=== PATIENT | female | born 1990 | race Caucasian/White ===

== ENCOUNTER 2020-03-02 10:54 | Outpatient (REF) | payer OTHER, SELFPAY ==
[2020-03-02 11:25] LABS: COVID-19 Test Negative (Negative)
== END 2020-03-02 10:55 | disposition home or self-care (01) ==
LOC: HO.LAB 10:54
PROVIDERS: Visit Provider Internal Medicine
DX: Z20.828 Contact with and (suspected) exposure to other viral communicable diseases (principal)
CPT/HCPCS: 87635

== ENCOUNTER 2020-03-07 07:25 | Outpatient (REF) | payer OTHER, SELFPAY ==
[2020-03-07 07:47] LABS: COVID-19 Test Negative (Negative)
== END 2020-03-07 07:26 | disposition home or self-care (01) ==
LOC: HO.LAB 07:25
PROVIDERS: Visit Provider Internal Medicine
DX: Z20.828 Contact with and (suspected) exposure to other viral communicable diseases (principal)
CPT/HCPCS: 87635

== ENCOUNTER 2020-05-01 10:12 | Outpatient (REF) | payer OTHER, SELFPAY ==
[2020-05-01 10:30] LABS: COVID-19 Test Negative (Negative)
== END 2020-05-01 10:13 | disposition home or self-care (01) ==
LOC: HO.EMPCOV 10:12
PROVIDERS: Visit Provider Internal Medicine
DX: Z20.828 Contact with and (suspected) exposure to other viral communicable diseases (principal)
CPT/HCPCS: 87635; C9803

== ENCOUNTER 2020-05-01 13:46 | Outpatient (REF) | payer OTHER, SELFPAY ==
[2020-05-01 15:44] LABS: Syphilis Screen Nonreactive (Nonreactive)
[2020-05-02 04:20] LABS: ~Hepatitis C Antibody Nonreactive (Nonreactive)
[2020-05-02 04:24] LABS: HBsAGNum1 0.23 S/CO (0.00-0.99); HIV AB/AG Nonreactive (Nonreactive); HIV Num 1 0.05 S/CO (0.00-0.99); Hepatitis B Surface Antigen Negative (Negative)
[2020-05-02 08:57] LABS: Follicle Stimulating Hormone 8.1 mIU/mL; Lutenizing Hormone 2.7 mIU/mL; Prolactin 4.9 ng/mL
[2020-05-04 20:17] LABS: Anti-Mullerian Hormone-Female 3.14 ng/mL (0.36-10.07)
[2020-05-10 23:37] LABS: Estradiol Free 0.45 pg/mL; Estradiol, Ultrasensitive 30 pg/mL
== END 2020-05-01 13:47 | disposition home or self-care (01) ==
LOC: HO.LAB 13:46
PROVIDERS: PCP Family Medicine; Visit Provider Obstetrics & Gynecology Reproductive Endocrinology
DX: Z31.49 Encounter for other procreative investigation and testing (principal); Z31.9 Encounter for procreative management, unspecified; Z31.41 Encounter for fertility testing
CPT/HCPCS: 82397; 82670; 83001; 83002; 84146; 84443; 86762; 86780; 86803; 86850; 87340; 87389

== ENCOUNTER 2020-05-04 13:43 | Outpatient (REF) | payer OTHER, SELFPAY ==
[2020-05-04 14:05] LABS: COVID-19 Test Negative (Negative); IDNOW Serial# 55D5AD1C
== END 2020-05-04 13:44 | disposition home or self-care (01) ==
LOC: HO.EMPCOV 13:43
PROVIDERS: Visit Provider Internal Medicine
DX: Z20.828 Contact with and (suspected) exposure to other viral communicable diseases (principal)
CPT/HCPCS: 87635; C9803

== ENCOUNTER 2020-05-11 12:30 | Outpatient (RCR) | payer OTHER, SELFPAY ==
[2020-05-04 14:21] VITALS: BP 108/69; PULSE 88
--- NOTE | 2020-05-04 15:41 | MHC.PT.EP ---
[facility] [place] [facility] [place] [facility] [place] [facility] [address] Nitesh Almendarez [address] [phone] F: [phone] F: [phone] F: [phone] F: [phone] Physical Therapy Plan of Care Date of Evaluation: 05/04/20 Date of Surgery: NA Diagnosis: Dizziness and giddiness Assessment: 30 year old female referred for dizziness and giddiness . Pt reports of having sudden onset of vertigo about 3-4 months back which has gotten worse over the last 2 weeks. She describes her symptoms as room spinning which is present with rolling in bed, supine to sit, bending down and making sudden side to side head turns. Her symptoms last for a few seconds and she occasionally has nausea. Examination reveals saccades, smooth pursuit, visual tracking WNL, DGI- 23/24- dizziness with stop and turn, static balance- WNL and positive for L PC BPPV. She lives with her who helps her with all ADLS requiring her to bend down. 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 She is a good candidate for PT based on age, goals, physical impairments and functional limitations. She would benefit from PT for vestibular rehab. Frequency and Duration: The patient will be seen 2/week for 4 weeks Short Term Goals: 1. Patient to be educated on symptoms and indications to return to therapy when needed in 4 weeks. 2. Pt will be negative for nystagmus or reports of vertigo in all diagnostic positions bilaterally to resolution of BPPV in 4 weeks. Retirement Goals: 1. Patient to be able to functionally move in all planes and directions without provocation of dizziness to show return to PLOF in 6 weeks. Treatment Plan: Modalities to reduce pain, spasms and effusion. Manual therapy to restore motion and function. Therapeutic exercise to improve strength and flexibility. Neuromuscular re-education for posture and balance. Therapeutic activities to return to functional activities of daily living. Electronically signed by: Jesica Gary DPT Please sign and return to therapist. Thank you for your referral.
--- NOTE | 2020-06-14 08:26 | MHC.PT.DC ---
[facility] [place] [facility] [place] [facility] [place] [facility] [address] Nitesh Almendarez [address] [phone] F: [phone] F: [phone] F: [phone] F: [phone] Physical Therapy Discharge Report Diagnosis: Dizziness and giddiness Date of Surgery: NA Date of Evaluation: 05/04/20 Date of Discharge: 06/14/20 Treatments to Date: 4 Cancellations to Date: 0 No Shows to Date: Discharge Status: Achieved Goals Improved Function Discharge Summary: Pt arrived with no symptoms of vertigo on 05/11/20. She was assessed in B [place] and B roll test. She was negative for nystagmus and vertigo. Pt has been asymptomatic for a month. Pt therefore d/c from therapy today. Electronically signed by: Jesica Gary DPT Please sign and return to therapist. Thank you for your referral.
== END 2020-06-14 08:27 | disposition other institution (70) ==
LOC: HO.PT 12:30
PROVIDERS: PCP Family Medicine; Visit Provider Family Medicine
DX: R42 Dizziness and giddiness (principal)
CPT/HCPCS: 95992; 97112; 97161

== ENCOUNTER 2021-05-09 11:45 | Outpatient (REF) | payer OTHER, SELFPAY ==
[2021-05-09 12:56] LABS: Influenza A PCR NEGATIVE (Negative); Influenza B PCR NEGATIVE (Negative); Resp Syncy Virus RNA Qual PCR NEGATIVE (Negative); SARS COV2 PCR INHOUSE POSITIVE (Negative)
== END 2021-05-09 11:46 | disposition home or self-care (01) ==
LOC: HO.LNP 11:45
PROVIDERS: Visit Provider Family Medicine
DX: Z20.822 Contact with and (suspected) exposure to COVID-19 (principal); B34.9 Viral infection, unspecified
CPT/HCPCS: 0241U

== ENCOUNTER 2021-05-23 10:15 | Outpatient (REF) | payer OTHER, SELFPAY ==
--- NOTE | ~2021-05-23 | XR_ITS ---
EXAMINATION: XR CHEST CLINICAL INFORMATION: Post Covid 19 condition COMPARISON: Chest 12/05/2011 TECHNIQUE: 2 views of the chest were obtained. FINDINGS: No significant abnormality is noted involving the heart, lungs, mediastinum, bony thorax or soft tissues. XR/XR chest 2V IMPRESSION: Unremarkable chest examination.
== END 2021-05-23 10:16 | disposition home or self-care (01) ==
LOC: HO.XRAY 10:15
PROVIDERS: PCP Family Medicine; Visit Provider Internal Medicine Pulmonary Disease
DX: U09.9 Post COVID-19 condition, unspecified (principal); B34.9 Viral infection, unspecified; J45.909 Unspecified asthma, uncomplicated; Z79.51 Long term (current) use of inhaled steroids
CPT/HCPCS: 71046

== ENCOUNTER 2021-06-08 16:31 | Outpatient (REF) | payer OTHER, SELFPAY ==
[2021-06-08 16:41] LABS: MANUAL DIFF FLAG NO
[2021-06-08 17:39] LABS: Basophils Absolute Auto 0.1 X10*3/uL (0.0-0.2); Basophils Percent Auto 0.8 % (0-2); Eosinophils Absolute Auto 0.1 X10*3/uL (0.0-0.4); Eosinophils Percent Auto 1.6 % (0-4); Hematocrit 40.4 % (37.0-47.0); Hemoglobin 13.3 g/dl (12.0-16.0); Imm Gran Abs Auto 0.01 X10*3/uL (0.00-0.03); Imm Gran Pct Auto 0.2 % (0.0-0.4); Lymphocytes Absolute Auto 2.6 X10*3/uL (1.2-4.9); Lymphocytes Percent Auto 40.8 % (20-40); Mean Corpuscular HGB Conc 32.9 g/dl (31.0-35.0); Mean Corpuscular Hemoglobin 27.1 pg (27.0-33.0); Mean Corpuscular Volume 82.3 fL (80.0-98.0); Mean Platelet Volume 10.3 fL (9.4-12.3); Monocytes Absolute Auto 0.5 X10*3/uL (0.1-1.2); Monocytes Percent Auto 8.5 % (2-11); Neutrophils Absolute Auto 3.1 x10*3/uL (2.0-8.3); Neutrophils Percent Auto 48.1 % (45-73); Platelet Count 228 X10*3/uL (160-400); Red Blood Count 4.91 X10*6/uL (4.20-5.50); Red Cell Distribution Width 13.2 % (11.0-16.0); White Blood Count 6.4 X10*3/uL (4.8-10.8)
[2021-06-08 18:08] LABS: D Dimer High Sensitivity < 150 NG/ML
[2021-06-08 18:10] LABS: Troponin-I High Sensitivity < 3.5 ng/L (<3.5-17.0)
[2021-06-09 15:06] LABS: CRP High Sensitivity 0.4 mg/L
== END 2021-06-08 16:32 | disposition home or self-care (01) ==
LOC: HO.LAB 16:31
PROVIDERS: PCP Family Medicine; Visit Provider Internal Medicine Cardiovascular Disease
DX: R07.9 Chest pain, unspecified (principal)
CPT/HCPCS: 36415; 84484; 85025; 85379; 86141

== ENCOUNTER → 2021-06-12 14:47 | Outpatient (BNVA) | payer OTHER, SELFPAY | PROVIDERS: Visit Provider Internal Medicine Cardiovascular Disease | DX: Z13.89 Encounter for screening for other disorder (principal) | CPT/HCPCS: 93005 ==

== ENCOUNTER → 2021-06-13 14:23 | Outpatient (BNVA) | payer OTHER, SELFPAY | PROVIDERS: Visit Provider Internal Medicine Cardiovascular Disease | DX: R07.9 Chest pain, unspecified (principal) | CPT/HCPCS: 93005 ==

== ENCOUNTER → 2021-06-21 15:09 | Outpatient (BNVA) | payer OTHER, SELFPAY | PROVIDERS: PCP Family Medicine; Visit Provider Internal Medicine Pulmonary Disease | DX: B34.9 Viral infection, unspecified (principal); U09.9 Post COVID-19 condition, unspecified ==

== ENCOUNTER 2021-07-16 16:02 | Outpatient (REF) | payer OTHER, SELFPAY ==
--- NOTE | 2021-07-16 17:16 | PFT_ITS ---
FLOWS: FEV1 101% of predicted at 3.81 L. FVC 92% of predicted at 4.18 L. FEV1 to FVC ratio of 0.91. No bronchodilator response except in small to medium airways. LUNG VOLUMES: Total lung capacity 106% of predicted at 6.32 L. Residual volume 133% of predicted at 2.32 L. Slow vital capacity 94% of predicted at 4.01 L. Expiratory reserve volume 72% of predicted at 1.16 L. Diffusion capacity is normal. IMPRESSION: No obstructive or restrictive ventilatory defect. No bronchodilator response except in small to medium airways. Increased residual volume suggests air trapping. Nawaf Bryan MD AP/MODL / [id number]
== END 2021-07-16 16:03 | disposition home or self-care (01) ==
LOC: HO.RESP 16:02
PROVIDERS: PCP Family Medicine; Visit Provider Internal Medicine Pulmonary Disease
DX: R06.00 Dyspnea, unspecified (principal); J45.909 Unspecified asthma, uncomplicated
CPT/HCPCS: 94060; 94727; 94729

== ENCOUNTER 2021-08-13 15:48 | Outpatient (REF) | payer OTHER, SELFPAY ==
[2021-08-13 16:07] LABS: Strep A Nucleic Acid Negative (Negative)
== END 2021-08-13 15:49 | disposition home or self-care (01) ==
LOC: HO.LNP 15:48
PROVIDERS: Visit Provider Nurse Practitioner Family
DX: J02.9 Acute pharyngitis, unspecified (principal); Z20.822 Contact with and (suspected) exposure to COVID-19
CPT/HCPCS: 87071; 87147; 87651

== ENCOUNTER 2021-10-24 14:21 | Outpatient (REF) | payer OTHER, SELFPAY ==
[2021-10-24 15:06] LABS: Hematocrit 36.2 % (37.0-47.0); Hemoglobin 11.7 g/dl (12.0-16.0); Mean Corpuscular HGB Conc 32.3 g/dl (31.0-35.0); Mean Corpuscular Hemoglobin 26.1 pg (27.0-33.0); Mean Corpuscular Volume 80.6 fL (80.0-98.0); Mean Platelet Volume 9.6 fL (9.4-12.3); Platelet Count 249 X10*3/uL (160-400); Red Blood Count 4.49 X10*6/uL (4.20-5.50); Red Cell Distribution Width 13.1 % (11.0-16.0); White Blood Count 6.8 X10*3/uL (4.8-10.8)
[2021-10-24 15:35] LABS: Anion Gap 12 (12-20); Blood Urea Nitrogen 7 mg/dL (9-16); Calcium 8.9 mg/dL (8.4-10.2); Carbon Dioxide 24 mmol/L (22-29); Chloride 105 mmol/L (96-108); Estimated Glomerular Filt Rate > 60; Glucose Random 68 mg/dL (60-115); Iron 47 mcg/dL (30-160); Magnesium 1.9 mg/dL (1.6-2.6); Percent Iron Saturation 10 % (15-50); Potassium 3.8 mmol/L (3.3-5.1); Sodium 137 mmol/L (135-145); Total Iron Binding Capacity 465 mcg/dL (228-428); Unsaturated Iron Binding 418 ug/dL
[2021-10-24 15:56] LABS: TSH reflex Free T4 0.86 uIU/mL (0.32-4.0); Vitamin D 25-OH Total 21.5 ng/mL (>30)
[2021-10-24 16:04] LABS: Folate 9.3 ng/mL (> or = 4.0); Vitamin B12 272 pg/mL (200-900)
[2021-10-25 15:51] LABS: Calcium (PTHI) 8.9 mg/dL (8.6-10.2); PTHI 21 pg/mL (16-77)
== END 2021-10-24 14:22 | disposition home or self-care (01) ==
LOC: HO.LAB 14:21
PROVIDERS: PCP Nurse Practitioner Family; Visit Provider Physician Assistant
DX: R00.0 Tachycardia, unspecified (principal); D50.9 Iron deficiency anemia, unspecified; R42 Dizziness and giddiness; E53.8 Deficiency of other specified B group vitamins
CPT/HCPCS: 36415; 80048; 82306; 82607; 82746; 83540; 83735; 83970; 84443; 85027

== ENCOUNTER → 2021-11-05 11:19 | Outpatient (REF) | payer OTHER, SELFPAY ==
--- NOTE | 2021-11-05 11:23 | HM_ITS ---
Conclusion: 1. Patient was monitored for total period of 3 days 2. Baseline was normal sinus rhythm with average heart rate of 76 beats per minute 3. No significant pauses or bradycardia noted 4. One episode of 3 beat nonsustained VT at 169 beats per minute noted 5. Very rare ectopy noted 6. One reported patient event correlated with sinus rhythm MTDD
== END ==
LOC: HO.CARD 11:19
PROVIDERS: Visit Provider Physician Assistant
DX: R00.0 Tachycardia, unspecified (principal)
CPT/HCPCS: 93242

== ENCOUNTER → 2022-03-07 11:58 | Outpatient (RCR) | payer OTHER, SELFPAY ==
[2020-03-30 17:06] LABS: COVID-19 Test Negative (Negative)
[2020-04-07 18:18] LABS: COVID-19 Test Negative (Negative); IDNOW Serial# 55D5AD1C
[2020-04-17 13:41] LABS: COVID-19 Test Negative (Negative)
[2020-05-15 09:41] LABS: SARS-COV-2 PCR UMBRL Not Detected
[2020-05-23 09:51] LABS: SARS-COV-2 PCR UMBRL Not Detected
[2020-05-31 09:49] LABS: SARS-COV-2 PCR UMBRL NOT DETECTED
[2020-06-04 09:59] LABS: SARS-COV-2 PCR UMBRL NEGATIVE
== END | disposition home or self-care (01) ==
LOC: HO.EMPCOV 03-30 15:46
PROVIDERS: Visit Provider Internal Medicine
DX: Z20.828 Contact with and (suspected) exposure to other viral communicable diseases (principal)
CPT/HCPCS: 36415; 87635; C9803; U0003

== ENCOUNTER 2023-03-11 08:35 | Outpatient (AMB) | payer OTHER, SELFPAY ==
--- NOTE | 2023-03-11 08:38 | AM.OFFWIN_ITS ---
Intake Vital Signs 03/11/23 08:40 Height 5 ft 9 in Weight 136 lb 8 oz BMI 20.2 BP 104/60 Blood Pressure Location Lt brachial Position Sitting Pulse 85 Pulse Source Pulse Oximeter Temp 97.6 F Temp Source Temporal Artery Scan Pulse Oximetry (%) 98 Oxygen Delivery Method Room Air Intake Visit Reasons: EP, cough, body aches, congestion [phone] Intake Note: Pt is here c/o cough, body aches and chest congestion. Pt also has symptoms of bilateral ear pain. Patient Tobacco Use Status: Never used Tobacco Allergies No Known Allergies [No Known Allergies*] Allergy (Verified 03/11/23 08:59) Medication List - Last Reconciled 03/11/23 by Daniel Wilson MD No Known Home Meds Do you need a note to return to daycare/school/sports/work: Yes HPI EP, cough, body aches, congestion [phone] HPI Details Patient presents for a sick visit. Reporting symptoms of sinus congestion, sore throat and difficulty swallowing. Low-grade fever. family member are sick. No recent travel. Patient reports symptoms of malaise and fatigue. 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 Cognitive needs: No Hearing needs: No Vision needs: No Physical Exam Vital Signs: Last Vital Signs Temp 97.6 F 03/11/23 08:40 Pulse 85 03/11/23 08:40 BP 104/60 03/11/23 08:40 Pulse Ox 98 03/11/23 08:40 Oxygen Delivery Method Room Air 03/11/23 08:40 BMI result Body Mass Index 20.2 Const General: cooperative and healthy appearing Nutritional Appearance: well nourished Orientation/consciousness: patient oriented x3 Limitations: no limitations HEENT Head: Yes normal to inspection Eyes General: appearance normal, both eyes and all related structures Neck Neck: Yes normal visual inspection Chest Chest palpation & inspection: normal palpation of entire chest wall Resp Effort & Inspection: normal respiratory effort Neuro General: patient oriented x3 Assessment & Plan Assessment & Plan (1) Upper respiratory tract infection: Code(s): J06.9 - Acute upper respiratory infection, unspecified Plan: Antibiotics ordered. Increase fluid intake. Tylenol for aches and pains. If s ymptoms worsen, follow-up here for a recheck. Coding Level of Care Code Est Pt Level 3 (09676) Diagnoses Upper respiratory tract infection J06.9
[2023-03-11 08:40] VITALS: BP 104/60; PULSE 85; TEMP 36.4; O2SAT 98; BMI 20.2
== END 2023-03-11 09:03 | disposition home or self-care (01) ==
PROVIDERS: PCP Physician Assistant; Visit Provider Internal Medicine
DX: J06.9 Acute upper respiratory infection, unspecified (principal)
CPT/HCPCS: 99213

== ENCOUNTER 2023-04-15 08:07 | Outpatient (AMB) | payer OTHER, SELFPAY ==
[2023-04-15 08:14] VITALS: BP 102/78; PULSE 66; O2SAT 99; BMI 20.1
--- NOTE | 2023-04-15 08:14 | A.OFFPC_ITS ---
Vital Signs 04/15/23 08:14 Height 5 ft 9 in Weight 136 lb BMI 20.1 BP 102/78 Blood Pressure Location Lt brachial Position Sitting Pulse 66 Pulse Source Pulse Oximeter Pulse Oximetry (%) 99 Oxygen Delivery Method Room Air Intake Visit Reasons: PHY Intake Note: Patient here for a physical exam Campaign Management Specialist Required: No Accompanied by: Self / Same As Patient Allergies No Known Allergies [No Known Allergies*] Allergy (Verified 04/15/23 08:20) Medication List - Last Reconciled 04/15/23 by Mick Aguila PA-C No Known Home Meds Tobacco use date assessed: 09/03/22 Dental Screening Dental Screen Date: 04/15/23 Did you have a dental visit in the last 12 months?: Yes Did you have a dental problem in the last 6 months where you did not have access to dental care?: No Was dental information given to patient?: Patient has dentist HPI PHY HPI Details Patient is a 33-year-old female here today for routine annual physical. Patient has no significant past medical history. Recently had a baby boy. During her did have tachycardia. Concerns--> Has been having psoriasis since having her baby. She does use cortisone 10 at times on her skin for flares. She used to use a scalp whole which did a nice job a reducing her psoriasis on her scalp. Vaccines: Up-to-date with COVID vaccine, tetanus vaccine, needs FLu vaccine. Ged Tutor: Followed by OBGYN, up-to-date with Pap [facility] Medical History History of meningitis Surgical History History of hernia surgery Family History Mother High cholesterol Father Diabetes Hypertension Maternal Grandmother Breast cancer, Onset Age: 48 Paternal Grandmother Breast cancer Social History (Updated 04/15/23 @ 08:26 by Mick Aguila PA-C) Housing: House Alcohol intake: current Alcohol intake frequency: holidays/special occasions only Patient Tobacco Use Status: Never used Tobacco e-Cigarette/Vaping Use: Never Used Second Hand Smoke Exposure: No service: No Current occupational status: employed 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 Jason Maxwell, Joie Bolaños, Nash Jeronimo and colleagues, with an educational bina from [employer]. Review of Systems Const Denies body aches, Denies chills, Denies excessive sweating, Denies fatigue, Denies fever(s) and Denies headache(s) Eyes Denies blurry vision ENT Denies dysphagia, Denies vertigo, Denies dizziness, Denies headache(s), Denies hearing loss and Denies tinnitus Card Denies chest pain, Denies chest pain with activity, Denies syncope, Denies irregular heart rhythm and Denies dyspnea Resp Denies chest congestion, Denies cough, Denies hemoptysis, Denies dyspnea and Denies wheezing GI Denies abdominal pain, Denies melena, Denies hematochezia, Denies coffee ground emesis, Denies dysphagia, Denies diarrhea, Denies nausea and Denies vomiting Denies urinary frequency, Denies dysuria, Denies urinary hesitancy and Denies urinary urgency Musc Denies arthralgias, Denies limited range of motion, Denies muscle cramps and Denies muscle weakness Skin/Breast Denies rash and Denies skin ulcer Neuro Denies Abnormal speech present, Denies confusion, Denies vertigo, Denies dizziness, Denies syncope, Denies headache(s), Denies memory loss and Denies seizure-like activity Psych Denies anxiety, Denies confusion, Denies depression, Denies memory loss, Denies panic attacks and Denies paranoia Endo Denies excessive sweating, Denies fatigue, Denies flushing, Denies polydipsia and Denies polyuria Aller/Immun Denies wheezing Physical exam (Primary Care) Vital Signs: Last Vital Signs Pulse 66 04/15/23 08:14 BP 102/78 04/15/23 08:14 Pulse Ox 99 04/15/23 08:14 Oxygen Delivery Method Room Air 04/15/23 08:14 BMI result Body Mass Index 20.1 Tobacco/Smoking Status: Tobacco use Status Tobacco use date assessed 09/03/22 04/15/23 08:18 Patient Tobacco Use Status Never used Tobacco 04/15/23 08:26 e-Cigarette/Vaping Use Never Used 04/15/23 08:26 Thrive Assessment: Date of Thrive Assessment Date Thrive assessed 09/03/22 04/15/23 08:18 Const General: cooperative, comfortable, no acute distress, alert and awake; No confusion Orientation/consciousness: oriented to person, oriented to place, patient orie nted x3 and No confusion HENMT Head: Yes normocephalic Ears: external ears normal and TM's normal bilaterally Face and sinus: No sinus tenderness Mouth: Normal oral and palatal mucosa present and tongue normal Teeth and gingiva: dentition normal and gingiva normal Throat: Yes posterior oropharynx normal, Yes tonsils normal and Yes uvula midline Eyes Conjunctivae: conjunctivae normal Sclerae: sclerae normal Pupils: Equal, round and reactive pupils present EOM: EOMs intact bilaterally Direct Ophthalmoscopy: No no photophobia Neck Neck: Yes no lymphadenopathy, No tender and Yes no JVD Thyroid: Thyroid normal Carotids: no bruits Chest Chest palpation & inspection: no tenderness Resp Effort & Inspection: normal respiratory effort, no audible wheezes, not labored and no stridor Auscultation: no crackles, no rales, no rhonchi and no wheezes Cardio Jugular venous distension: no JVD Rate: regular rate, not bradycardic and not tachycardic Rhythm: regular rhythm Bruits: no carotid bruits Peripheral pulses: Peripheral pulses 2+ throughout GI Inspection: Yes normal to inspection, No abdominal wall ecchymosis and No visible herniation Palpation (GI): Soft to palpation, nontender, no guarding, not rigid and No hepatosplenomegaly present Auscultation: normoactive bowel sounds General: Yes no CVA tenderness Back/Spine/Pelvis Back: no CVA tenderness and No back tenderness Cervical Spine: cervical ROM normal Thoracic/Lumbar Spine: thoracic and lumbar spine normal to inspection, straight leg raise negative bilaterally, No thoraco-lumbar ROM limited and No lumbar spinal tenderness Skin Lesions: no lesions Rashes: no rashes Wounds: no wounds Neuro General: oriented to person, oriented to place, patient oriented x3, CN's II-XI intact bilaterally and No confusion Cranial nerves: Yes Equal, round and reactive pupils present and Yes Normal accommodation reflex present Cognition (Neuro): normal cognition Speech: No Abnormal speech present Gait exam (Neuro): Normal gait present Motor exam (neuro): 5/5 motor strength present throughout Extrem Right upper extremity: full ROM; no cyanosis Left upper extremity: full ROM; no cyanosis Right lower extremity: no edema Left lower extremity: no edema Psych Appearance: grossly normal Mental Status: mental status grossly normal Affect: normal affect Attitude: cooperative Thought process: Normal thought process present Office Procedures Flu Questionnaire Does the patient have a severe egg allergy?: No Does the patient have severe life threatening allergies?: No Does the patient have a fever or illness today?: No Has the patient ever had Guillain-[place] Syndrome?: No Has the patient ever had any past reaction to a flu shot?: No Immunizations flu vacc [id number] 6mos up(PF) 60 mcg(15 mcgx4)/0.5 mL IM syringe Performing Provider: Mick Aguila PA-C Performing Location: [facility] Administered by: BRENTON Ray on 04/15/23 08:42 Dose Route Admin Location Dispensed Lot Number Expiration Date NDC Maintenance [employer] 0.5 mL IM Left Deltoid 0.5 mL [id number] 11/16/23 65942-875-54 [employer] VIS Given Date VIS Provided VIS Publication Date 04/15/23 Single Vaccine 20 Eligibility Eligibility Date Funding Source Not [facility] Eligible 04/15/23 Private Assessment and Plan Assessment & Plan (1) Annual physical exam: Code(s): Z00.00 - Encounter for general adult medical examination without abnormal findings (2) Screening for diabetes mellitus (DM): Code(s): Z13.1 - Encounter for screening for diabetes mellitus (3) Psoriasis: Code(s): L40.9 - Psoriasis, unspecified Plan: Has had a chronic history of psoriasis. Her skin does flare with stress. Would like to use an oil on her scalp as her psoriasis flares on her scalp and behind her ears. Orders: Orders Comprehensive [place]. Panel Fast Today Z13.1 - Encounter for screening for diabetes mellitus Influenza [id number] Immunization Today Z23 - Encounter for immunization Complete Blood Count no Diff Today J45.909 - Unspecified asthma, uncomplicated Medications: New fluocinolone 0.01% 1 appl topical DAILY 30 days 118.28 mL 1RF L40.9 - Psoriasis, unspecified Coding Level of Care Code Est Pt Prev Care 18-39y(07081) Diagnoses Annual physical exam Z00.00 Screening for diabetes mellitus (DM) Z13.1 Psoriasis L40.9
== END 2023-04-15 08:43 | disposition home or self-care (01) ==
PROVIDERS: Visit Provider Physician Assistant
DX: Z00.00 Encounter for general adult medical examination without abnormal findings (principal); Z13.1 Encounter for screening for diabetes mellitus; L40.9 Psoriasis, unspecified; Z23 Encounter for immunization
CPT/HCPCS: 90471; 90686; 99395

== ENCOUNTER 2023-04-25 08:44 | Outpatient (REF) | payer OTHER, SELFPAY ==
--- NOTE | ~2023-04-25 | XR_ITS ---
EXAMINATION: XR SHOULDER, RIGHT CLINICAL INFORMATION: Right shoulder pain COMPARISON: None available. TECHNIQUE: AP external rotation, scapular Y, and axillary views of the right shoulder. FINDINGS: BONES: Bony structures are intact. There is no focal bone destruction or periosteal reaction seen. JOINTS: Alignment of joints is normal. SOFT TISSUE: Soft tissue is normal. No radiopaque foreign body or abnormal air collection is seen. XR/XR shoulder RT min 2V IMPRESSION: 1. Normal x-rays of right shoulder. No fracture or dislocation or signs of osteomyelitis are found.
== END 2023-04-25 08:45 | disposition home or self-care (01) ==
LOC: HO.HOSX 08:44
PROVIDERS: Visit Provider Physician Assistant
DX: M75.21 Bicipital tendinitis, right shoulder (principal); M75.81 Other shoulder lesions, right shoulder
CPT/HCPCS: 73030

== ENCOUNTER 2023-04-25 08:45 | Outpatient (AMB) | payer OTHER, SELFPAY ==
--- NOTE | 2023-04-25 08:48 | A.OFFVIS_ITS ---
Intake Vital Signs 04/25/23 08:49 Height 5 ft 9 in Weight 136 lb BMI 20.1 Intake Visit Reasons: New Pt - right shoulder injury DOI 04/19/23 Intake Note: Sally 33 yr old female who is right hand dominant presents today for a new patient evaluation for her right shoulder pain. 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 States she felt a twinge and was better afterwards however the following day she woke up in pain. Currently she is experiencing pain with ROM, has mild stiffness in neck. Denies numbness or tingling. 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 She states she woke up with pain the following day and has been experiencing pain and limited ROM in her shoulder. She also c/o mild stiffness in her neck. She denies any numbness or tingling. 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 Current occupational exposures/hazards: No Cognitive needs: No Hearing needs: No Vision needs: No Review of Systems Const All systems reviewed & are unremarkable except as noted in HPI and below Physical Exam Vital Signs: BMI result Body Mass Index 20.1 Const General: cooperative, healthy appearing, comfortable, no acute distress, well developed and alert Orientation/consciousness: patient oriented x3 HEENT Head: Yes normal to inspection, Yes normocephalic and Yes atraumatic Eyes General: appearance normal, both eyes and all related structures Resp Effort & Inspection: normal respiratory effort and able to speak in complete sentences Cardio Rate: regular rate Peripheral pulses: Peripheral pulses 2+ throughout GI Palpation (GI): Soft to palpation Skin Lesions: no lesions Rashes: no rashes Neuro General: patient oriented x3 Extrem Other: Right shoulder normal to inspection. Tenderness over the bicipital groove and along the deltoid region of the shoulder. Forward flexion to 175, external rotation to 80 with discomfort, internal rotation to S1. 5/5 RTC strength. Positive O'Briens. NVI. Results Reviewed Results Reviewed: Xrays were obtained in the office today and personally reviewed by me of the right shoulder show well preserved joint space with type 2 acromion Assessment & Plan Assessment & Plan (1) Biceps tendonitis on right: Code(s): M75.21 - Bicipital tendinitis, right shoulder (2) Tendinitis of right rotator cuff: Code(s): M75.81 - Other shoulder lesions, right shoulder Plan We discussed options which include PT, NSAIDs and injections. She will hold off on formal physical therapy at this time and we reviewed home exercises program in the office today that she will work on. She was also given a rx for Ibuprofen 800 mg to take bid for 2 weeks. If symptoms persist or worsen over the next 4-6 weeks she will contact me for formal therapy vs steroid injection, otherwise, PRN. Orders: Orders XR shoulder RT min 2V Today M25.511 - Pain in right shoulder Medications: New ibuprofen 800 mg PO Q8H PRN 90 tabs 3RF pain 30 days S52.209D - Unspecified fracture of shaft of unspecified ulna, subsequent encounter for closed fracture with routine healing Patient Instructions: Scribed for Ronnie-Maria Elena Sun PA-C, by Cabrera Sarabia medical office assistant, on 04/25/2023 at 9:00 AM Montez RUELAS PA-C, have personally reviewed and agree with the information entered by the scribe. Coding Level of Care Code New Pt Level 3 (37977) Diagnoses Biceps tendonitis on right M75.21 Tendinitis of right rotator cuff M75.81
[2023-04-25 08:49] VITALS: BMI 20.1
== END 2023-04-25 09:29 | disposition home or self-care (01) ==
LOC: HO.HOS 08:45
PROVIDERS: PCP Physician Assistant; Visit Provider Physician Assistant
DX: M75.21 Bicipital tendinitis, right shoulder (principal); M75.81 Other shoulder lesions, right shoulder
CPT/HCPCS: 99203

== ENCOUNTER 2023-05-05 15:34 | Outpatient (AMB) | payer OTHER, SELFPAY ==
--- NOTE | 2023-05-05 15:34 | MHC.OFFVIS ---
Intake Intake Visit Reasons: Right Shoulder Pain Intake Note: Sally is a 33 year old right hand dominant female who presents today with complaints of right shoulder pain. She has tried taking tylenol and ibuprofen with temporary relief. She was given a home exercise program of which she had to discontinue due to increase of pain. Pain increases with reaching and lifting. 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 No acute trauma. 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 [facility] Medical History History of meningitis Surgical History History of hernia surgery Family History Mother High cholesterol Father Diabetes Hypertension Maternal Grandmother Breast cancer, Onset Age: 48 Paternal Grandmother Breast cancer Social History (Updated 04/25/23 @ 08:55 by Felicity [facility]) Housing: House Alcohol intake: current Alcohol intake frequency: holidays/special occasions only Patient Tobacco Use Status: Never used Tobacco e-Cigarette/Vaping Use: Never Used Second Hand Smoke Exposure: No service: No Current occupational status: employed 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 TTP bicipital groove Otherwise unremarkable exam Results Reviewed Results Reviewed: I personally reviewed relevant radiographs. Nl right shoulder radiograph Assessment & Plan Assessment & Plan (1) Biceps tendonitis on right: Code(s): M75.21 - Bicipital tendinitis, right shoulder Plan: Right shoulder bicipital tendonitis. I recommend PT with ionto and scapular stabilization. Coding Level of Care Code Est Pt Level 3 (18568) Diagnoses Biceps tendonitis on right M75.21
== END 2023-05-05 16:27 | disposition home or self-care (01) ==
LOC: HO.HOS 15:34
PROVIDERS: PCP Physician Assistant; Visit Provider Orthopaedic Surgery
DX: M75.21 Bicipital tendinitis, right shoulder (principal)
CPT/HCPCS: 99213

== ENCOUNTER → 2023-05-05 15:34 | Outpatient (BNVA) | payer OTHER, SELFPAY | PROVIDERS: PCP Physician Assistant; Visit Provider Orthopaedic Surgery ==

== ENCOUNTER 2023-05-26 08:00 | Outpatient (RCR) | payer OTHER, SELFPAY ==
--- NOTE | 2023-05-20 13:41 | MHC.PT.EP ---
[facility] [place] Office [place] Office [place] Office [address] Peggy Almendarez [address] [phone] F: [phone] F: [phone] F: [phone] F: [phone] Physical Therapy Plan of Care Date of Evaluation: 05/20/23 Date of Surgery: Diagnosis: Rt SHOULDER TENDONITIS, Rt BICIPITAL TENDONITIS Assessment: 33 YO FEMALE REF TO PT WITH A 3 WK H/O Rt ANT SH / BICIPITAL TENDONITIS PAIN, SUSTAINED WHILE REFEREEING A BASKETBALL GAME. 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 SHE REFEREES 5 x WK. SHE HAS TTP Rt ANT GH/ BICEPS TENDON WELL POST RC MM. THE Pt HAS DECR POSTURAL AWARENESS W RESULTANT MM AND SOFT TISSUE IMBALANCE/ STRENGTH DEFICITS/ TISSUE TENSION, (-) Rt SH INSTABILITY, AND END RANGE SORENESS W OVERHEAD OR LATERAL REACHES. THE Pt WOULD BENEFIT FROM A TAILORED PROGRAM OF THERAPEUTIC ACTIVITIES/ SCAP STAB, FUNCTIONAL TRAINING, POSTURAL EDUCATION, NEUROMUSCULAR RE-EDUCATION, AND MODALITIES (IONTO, KT, IASTM) NEEDED. Frequency and Duration: The patient will be seen 2 x WK x 4 WKS Short Term Goals: *DECR Rt SH PAIN TO 2-3/10 AT MAX *INDEP SELF-CORRECT POSTURE, VARIED POSITIONS *Pt DEMON APPROP ACTIVATION OF SCAPULAR RETRACTORS *INITIATE HEP FOR POST RC/ SCAP STAB Tie Presser Goals: *Pt INDEP W SELF-SX MGMT TECHN AND PROGR HEP ADDRESSING SOFT TISSUE TENSION WELL POST RC/ SCAP STRENGTH *Pt RESUME REG ADLs/ HOBBIES EVIDENT W Pt'S SPADI SCORE IMPROVEMENT BY 8-10 POINTS (AT EVAL 57/130) Treatment Plan: Modalities to reduce pain, spasms and effusion. Manual therapy to restore motion and function. Therapeutic exercise to improve strength and flexibility. Neuromuscular re-education for posture and balance. Therapeutic activities to return to functional activities of daily living. Electronically signed by: MARYURI EUBANKS,PT Please sign and return to therapist. Thank you for your referral.
--- NOTE | 2023-07-17 14:31 | MHC.PT.DC ---
[facility] [place] Office [place] Office [place] Office [address] Nitesh Almendarez [address] [phone] F: [phone] F: [phone] F: [phone] F: [phone] Physical Therapy Discharge Report Diagnosis: Rt SHOULDER TENDONITIS, Rt BICIPITAL TENDONITIS Date of Surgery: Date of Evaluation: 05/20/23 Date of Discharge: 07/17/23 Treatments to Date: 3 Cancellations to Date: 7 No Shows to Date: 0 Discharge Status: Improved Function Independent with HEP Patient Elected to Stop Recommend MD Follow-up Discharge Summary: JEEVAN BENEFITTED FROM PT TO REDUCE Rt ANT SHOULDER SXS, DEMON MORE EFFICIENT ACTIVATION OF HER POST RC/ SCAP MM AND , SELF CORRECT TECHN TO REDUCE FURTHER POSTURAL STRESS W ADLs/ WORK-SITE TASKS. SHE HAS A H/O THORACIC NUMBNESS , UNAFFECTED BY PT INTERVENTION-> THE Pt IS REFERRED BACK TO MD FOR FURTHER ASSESSMENT AT THIS TIME AND JEEVAN HAS CANC REMAINING PT APPTS AT THIS TIME. Electronically signed by: MARYURI EUBANKS,PT Please sign and return to therapist. Thank you for your referral.
== END 2023-07-17 14:31 | disposition home or self-care (01) ==
LOC: HO.PT 08:00
PROVIDERS: PCP Physician Assistant; Visit Provider Physician Assistant
DX: M75.21 Bicipital tendinitis, right shoulder (principal)
CPT/HCPCS: 97033; 97110; 97140; 97161; 97530

== ENCOUNTER 2023-05-29 08:45 | Outpatient (REF) | payer OTHER, SELFPAY ==
--- NOTE | ~2023-05-29 | XR_ITS ---
EXAMINATION: XR LUMBOSACRAL SPINE CLINICAL INFORMATION: Dorsalgia (back pain). COMPARISON: None available. TECHNIQUE: Three views of the lumbosacral spine. FINDINGS: There are five segmented, nonrib-bearing vertebra of the lumbar spine. The vertebral bodies have normal height and alignment. The curvature of the lumbar spine is normal. The disc spaces are maintained. No evidence of degenerative disc disease. No pars interarticularis defect or vertebral compression fracture. The anterior and posterior elements are intact. No lytic or osteoblastic lesion. Sacrum and sacroiliac joints are normal. XR/XR lumbar spine 2-3V IMPRESSION: Normal radiographic examination of the lumbosacral spine.
== END 2023-05-29 08:46 | disposition home or self-care (01) ==
LOC: HO.HOSX 08:45
PROVIDERS: Visit Provider Physical Medicine & Rehabilitation
DX: M51.24 Other intervertebral disc displacement, thoracic region (principal); Z79.899 Other long term (current) drug therapy
CPT/HCPCS: 72100

== ENCOUNTER 2023-05-29 11:03 | Outpatient (AMB) | payer OTHER, SELFPAY ==
--- NOTE | 2023-05-29 11:05 | MHC.OFFVIS ---
Intake Intake Visit Reasons: New Prob- Back Pain Intake Note: Sally is a 33 year old right hand dominant female who presents today for a evaluation for her mid back pain. Patient reports having pain and off and on numbness for 10 years. In 2010 she went to PT but it didnt give her relief. No hx of injury. Pain is worse when sitting and standing, however her pain is constant. 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 Since HS, Sally has been having mid back pain. Chronic, comes and goes, but has progressively gotten worse since last year. Described it as a numb and burning band on mid back. It does not radiate to arms or legs or abdomen. Denies numbness on fingers or toes. Denies weakness. Denies bladder/bowel changes. 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 Denies rash or flu-like illness during the onset of mid back pain. She played basketball and lacrosse in HS. Does not recall any severe injuries then. No MVA. No gymnastics. She continues to work out and do home exercises. She is currently in PT, mainly for shoulder pain but also working on upper back myofascial. [facility] Medical History (Updated 05/29/23 @ 11:24 by Yulisa Stevens MD) Thoracic spine pain History of meningitis Surgical History History of hernia surgery Family History Mother High cholesterol Father Diabetes Hypertension Maternal Grandmother Breast cancer, Onset Age: 48 Paternal Grandmother Breast cancer Social History (Updated 04/25/23 @ 08:55 by Felicity Reagan [facility]) Housing: House Alcohol intake: current Alcohol intake frequency: holidays/special occasions only Patient Tobacco Use Status: Never used Tobacco e-Cigarette/Vaping Use: Never Used Second Hand Smoke Exposure: No service: No Current occupational status: employed 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 Patient was appropriately conversant and oriented. Good historian. MSK: Inspection reveals appropriate head and neck positioning. Tightness noted on right upper trapezius and right rhomboids. Tenderness on T8-T11 spinous processes and right paraspinals. Nontender on lumbar area, SI or GT. No scapular winging. No atrophy. Cervical ROM was full. Spurling's sign negative. No specific abnormalities or instability found on inspection and palpation of the spine and extremities. Lumbar ROM was full. Strength is 5/5 in all muscle groups tested. No increased tone noted. Neurological: Neurologic examination of the upper and lower extremities was nonfocal with intact sensation, muscle stretch reflexes and without focal motor deficits . Ma?s negative bilaterally. Babinski was down going bilaterally. Clonus was negative. Gait is non-antalgic without loss of balance. Results Reviewed Results Reviewed: I independently reviewed the results of the following: lumbar xrays done today - normal disc spaces I reviewed records from the following: ortho Assessment & Plan Assessment & Plan (1) Thoracic spine pain: Code(s): M54.6 - Pain in thoracic spine (2) Myofascial pain: Code(s): M79.18 - Myalgia, other site Plan On exam, tenderness on spinous processes T8-T11 and also right thoracic paraspinals, same levels. I am concerned that this has been chronic and described as numbness, despite adequate conservative management. It would be reasonable to obtain thoracic spine MRI to rule out disc herniation. Also sending her back to xrays for thoracic plain views, rule out fracture from recent fishery biologist injury, though low suspicion. Discussed posture correction; myofascial release in PT for trapezius and rhomboids muscle; massage. Assessment and plan discussed with patient, and patient was agreeable. All questions were answered thoroughly. Yulisa Stevens MD, IAN Board Certified, [place] Board of [employer] and Rehabilitation (ABPMR) Board Certified, [place] Board of Electrodiagnostic Medicine (ABEM) Orders: Orders XR lumbar spine 2-3V Today M54.9 - Dorsalgia, unspecified MR thoracic spine wo con Today M51.24 - Other intervertebral disc displacement, thoracic region, M54.6 - Pain in thoracic spine XR thoracic spine 3V Today M54.6 - Pain in thoracic spine Coding Level of Care Code New Pt Level 4 (33575) Diagnoses Thoracic spine pain M54.6 Myofascial pain M79.18
== END 2023-05-29 11:28 | disposition home or self-care (01) ==
LOC: HO.HOS 11:03
PROVIDERS: PCP Physician Assistant; Visit Provider Physical Medicine & Rehabilitation
DX: M54.6 Pain in thoracic spine (principal); M79.18 Myalgia, other site
CPT/HCPCS: 99204

== ENCOUNTER 2023-06-04 08:52 | Outpatient (REF) | payer OTHER, SELFPAY ==
--- NOTE | ~2023-06-04 | MR_ITS ---
EXAMINATION: MR THORACIC SPINE WITHOUT CONTRAST CLINICAL INFORMATION: Pain from T8 to T11. Intervertebral disc displacement of the thoracic spine. COMPARISON: Thoracic spine radiographs from 09/15/2015. TECHNIQUE: MRI of the thoracic spine was obtained using routine sequences without contrast. FINDINGS: Normal anatomic alignment. Normal, homogeneous marrow signal throughout. No suspicious marrow edema. The vertebral body heights are maintained. Minimal degenerative disc disease from T6-T9. Otherwise, the intervertebral discs are of normal height and signal. No significant abnormalities of the thoracic spinal cord. The conus medullaris terminates at the level of L1. No significant abnormalities of the paraspinal musculature. Limited evaluation of the intrathoracic structures without significant abnormalities. The descending thoracic aorta is of normal contour and caliber. AXIAL SPINAL LEVELS: Normal annular contours throughout. There is no facet joint arthropathy. There is no neural foraminal stenosis. There is no spinal canal stenosis. 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 No overt spinal canal stenosis or nerve root compression.
== END 2023-06-04 08:53 | disposition home or self-care (01) ==
LOC: HO.MRI 08:52
PROVIDERS: Visit Provider Physical Medicine & Rehabilitation
DX: M51.24 Other intervertebral disc displacement, thoracic region (principal)
CPT/HCPCS: 72146

== ENCOUNTER 2023-06-17 12:11 | Outpatient (AMB) | payer OTHER, SELFPAY ==
--- NOTE | 2023-06-17 12:15 | AM.OFFWIN_ITS ---
Intake Vital Signs 06/17/23 12:17 Height 5 ft 9 in Weight 138 lb 8 oz BMI 20.5 BP 132/72 Blood Pressure Location Rt brachial Position Sitting Pulse 83 Pulse Source Pulse Oximeter Pulse Oximetry (%) 100 Oxygen Delivery Method Room Air Intake Visit Reasons: Sore Throat, Cough Intake Note: Patient is here today for sore throat, cough, fever, chills, body aches, and GI symptoms. Home Covid test neg. Otc did not help. Patient Tobacco Use Status: Never used Tobacco Storage Solutions Architect Required: No Pastor: Not Required per policy Accompanied by: Self / Same As Patient Allergies No Known Allergies [No Known Allergies*] Allergy (Verified 06/17/23 12:28) Medication List - Last Reconciled 06/17/23 by DALTON Benavidez fluocinolone 0.01% 1 appl topical DAILY 30 days ibuprofen 800 mg PO Q8H PRN 30 days multivitamin 1 tab PO DAILY Do you need a note to return to daycare/school/sports/work: Yes HPI HPI Comments History of Present Illness Details Sick since with flu like sx Fever initially but this has since improved + body aches, sore throat, cough, diarrh ea Exposed to sick contact at home home covid test negative did not get flu shot this season UTD on covid vaccine using otc w/o relief PFSH Medical History (Updated 06/17/23 @ 12:34 by DALTON Benavidez) Thoracic spine pain History of meningitis Surgical History History of hernia surgery Family History Mother High cholesterol Father Diabetes Hypertension Maternal Grandmother Breast cancer, Onset Age: 48 Paternal Grandmother Breast cancer Social History Housing: House Alcohol intake: current Alcohol intake frequency: holidays/special occasions only Patient Tobacco Use Status: Never used Tobacco e-Cigarette/Vaping Use: Never Used Second Hand Smoke Exposure: No service: No Current occupational status: employed 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 Current occupational exposures/hazards: No Cognitive needs: No Hearing needs: No Vision needs: No Review of Systems Const All systems reviewed & are unremarkable except as noted in HPI and below Physical Exam Vital Signs: Last Vital Signs Pulse 83 06/17/23 12:17 BP 132/72 06/17/23 12:17 Pulse Ox 100 06/17/23 12:17 Oxygen Delivery Method Room Air 06/17/23 12:17 BMI result Body Mass Index 20.5 Const Other: mildly ill appearing TM intact bilat, mild effusion R only nares with yellow discharge, turbinates wnl, scant blood d/c L nares pharynx wnl RRR LS CTAB, congested cough w/o distress noted during exam Assessment & Plan Assessment & Plan (1) Flu-like symptoms: Code(s): R68.89 - Other general symptoms and signs Plan: Viral swab negative flu, RSV, this is surprising giving her symptoms. I if symptoms script for Tamiflu. Shared decision-making told her that it is up to her whether not she wants to take this. Despite the negative swab she could still the flu. Either way history supportive care. Educated her on reasons to seek additional care. Specifically to include if she remains sick the next 5-7 days at that point she may require some antibiotics as this may be a secondary bacterial infection. Total time spent caring for the patient today was 30 minutes. This includes time spent before the visit reviewing the chart, time spent during the visit, and time spent after the visit on documentation This note is constructed using voice recognition software. While every effort has been made to ensure accuracy in bullet lubricant mixer, still errors may have been included Sometimes, these errors may affect the content or meaning of the given sentence . Influenza (flu) is an infection in the lungs and breathing passages. It is caused by the influenza virus. There are different strains, or types, of the flu virus from year to year. Unlike the common cold, the flu comes on suddenly and the symptoms can be more severe. These symptoms include a cough, congestion, fever, chills, fatigue, aches, and pains. These symptoms may last for a few weeks. Although the flu can make you feel very sick, it usually doesn't cause serious health problems. Home treatment is usually all you need for flu symptoms. But your doctor may prescribe antiviral medicine to prevent other health problems, such as pneumonia, from developing. The risk of other health problems from the flu is highest for young children (under 5), older adults (over 65), women, people with long-term health conditions, people who live in nursing homes or long-term care centres, and indigenous peoples. How can you care for yourself at home? Get plenty of rest. Drink plenty of fluids. If you have to limit fluids because of a health problem, talk with your doctor before you increase the amount of fluids you drink. Take an tsil-qwo-dbtaxdy pain medicine if needed, such as acetaminophen (Tylen ol), ibuprofen (Advil, Motrin), or naproxen (Aleve), to relieve fever, headache, and muscle aches. Read and follow all instructions on the label. No one younger than 18 should take aspirin. It has been linked to Jasmin syndrome, a serious illness. Take any prescribed medicine exactly as directed. Do not smoke. Smoking can make the flu worse. If you need help quitting, talk to your doctor about stop-smoking programs and medicines. These can increase your chances of quitting for good. If the skin around your nose and lips becomes sore, put some petroleum jelly (such as Vaseline) on the area. To ease coughing: Suck on cough drops or plain, hard candy. Try an xwvj-bnl-gvazmsb cough or cold medicine. Read and follow all instructions on the label. Raise your head at night with an extra pillow. This may help you rest if coughing keeps you awake. To avoid spreading the flu Wash your hands regularly, and keep your hands away from your face. Stay home from school, work, and other public places until you are feeling better and your fever has been gone for at least 24 hours. The fever needs to have gone away on its own without the help of medicine. Ask people living with you to talk to their doctors about preventing the flu. They may get antiviral medicine to keep from getting the flu from you. To prevent the flu in the future, get the flu vaccine every fall. Encourage people living with you to get the vaccine. Cover your mouth when you cough or sneeze. If you can, cough or sneeze into the bend of your elbow, not your hands. When should you call for help? Call 911 anytime you think you may need emergency care. For example, call if: You have severe trouble breathing. You have a seizure. Call your doctor or nurse advice line now or seek immediate medical care if: You have trouble breathing. You have a fever with a stiff neck or a severe headache. You have pain or pressure in your chest or belly. You have a fever or cough that returns after getting better. You feel very sleepy, dizzy, or confused. You are not urinating. You have severe muscle pain. You have severe weakness, or you are unsteady. You have medical conditions that are getting worse Watch closely for changes in your health, and be sure to contact your doctor or nurse advice line if: You do not get better as expected. You are having a problem with your medicine. Orders: Orders SARS-CoV2/FLU/RSV 06/17/23 R68.89 - Other general symptoms and signs Medications: New oseltamivir (Tamiflu) 75 mg PO Q12H 5 days 10 caps 0RF Coding Level of Care Code Est Pt Level 4 (40307) Diagnoses Flu-like symptoms R68.89
[2023-06-17 12:17] VITALS: BP 132/72; PULSE 83; O2SAT 100; BMI 20.5
== END 2023-06-17 12:45 | disposition home or self-care (01) ==
PROVIDERS: PCP Physician Assistant; Visit Provider Nurse Practitioner Family
DX: R68.89 Other general symptoms and signs (principal)
CPT/HCPCS: 99214

== ENCOUNTER 2023-06-17 12:36 | Outpatient (REF) | payer OTHER, SELFPAY ==
[2023-06-17 15:58] LABS: Influenza A PCR NEGATIVE (Negative); Influenza B PCR NEGATIVE (Negative); Resp Syncy Virus RNA Qual PCR NEGATIVE (Negative); SARS COV2 PCR INHOUSE NEGATIVE (Negative)
== END 2023-06-17 12:37 | disposition home or self-care (01) ==
LOC: HO.LAB 12:36
PROVIDERS: Visit Provider Nurse Practitioner Family
DX: Z11.52 Encounter for screening for COVID-19 (principal); Z20.822 Contact with and (suspected) exposure to COVID-19; R68.89 Other general symptoms and signs
CPT/HCPCS: 0241U

== ENCOUNTER 2023-11-18 10:10 | Outpatient (AMB) | payer OTHER, SELFPAY ==
[2023-11-18 10:13] VITALS: BP 100/62; PULSE 60; O2SAT 100; BMI 20.5
--- NOTE | 2023-11-18 10:13 | MHC.PC.OV ---
Vital Signs 11/18/23 10:13 Height 5 ft 9 in Weight 139 lb 0.4 oz BMI 20.5 BP 100/62 Blood Pressure Location Lt brachial Position Sitting Pulse 60 Pulse Source Pulse Oximeter Pulse Oximetry (%) 100 Oxygen Delivery Method Room Air Intake Visit Reasons: Sore Throat Intake Note: patient states sore throat, cough, runny nose X4 days with no relief Payroll And Benefits Analyst Required: No Allergies No Known Allergies [No Known Allergies*] Allergy (Verified 11/18/23 11:28) Medication List - Last Reconciled 11/18/23 by Yari Matias PA-C fluocinolone 0.01% 1 appl topical DAILY 30 days ibuprofen 800 mg PO Q8H PRN 30 days multivitamin 1 tab PO DAILY Tobacco use date assessed: 11/18/23 Dental Screening Dental Screen Date: 11/18/23 HPI Sore Throat HPI Details 33-year-old female with no significant past medical history last seen for annual exam 04/15/2023 coming in today for acute problem.? Review of the notes patient was seen in May in the walk-in clinic for flu-like symptoms and treated with Tamiflu.? Patient states her sore throat and runny nose started Friday, and mentions her 21-hibve-zfe son also has a runny nose. Endorses painful swallowing without difficulty and denies fever, chills, cough or body aches. States she has been taking zjau-iaf-lqfktcg analgesics which mildly helped with sore throat it has not tried anything else. Also mentioned she had 1 episode of diarrhea over the weekend without recurrence. Denies active history of seasonal allergies. 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 How often do you have a drink containing alcohol?: Never Total Score: 0 DEMETRICE-7 AMB Questionnaire DEMETRICE-7 Date DEMETRICE - 7 assessed: 09/03/22 Source: Developed by Drs. Jason Maxwell, Joie Bolaños, Nash Jeronimo and colleagues, with an educational bina from [employer]. Review of Systems Const Denies body aches, Denies chills, Denies fatigue and Denies fever(s) Eyes Denies change in vision ENT Details: Painful swallowing and runny nose. Denies dysphagia, Denies ear discharge, Denies otalgia, Denies facial pain, Denies neck pain, Denies sinus pain and Reports sore throat Card Reports no additional complaints Resp Reports no additional complaints and Denies cough GI Details: Had episode of diarrhea over the weekend without recurrence. Denies abdominal pain, Denies constipation and Denies dysphagia Musc Denies myalgias and Denies neck pain Neuro Reports no additional complaints Endo Denies fatigue Aller/Immun Denies seasonal rhinorrhea Physical exam (Primary Care) Vital Signs: Last Vital Signs Pulse 60 11/18/23 10:13 BP 100/62 11/18/23 10:13 Pulse Ox 100 11/18/23 10:13 Oxygen Delivery Method Room Air 11/18/23 10:13 BMI result Body Mass Index 20.5 Tobacco/Smoking Status: Tobacco use Status Tobacco use date assessed 11/18/23 11/18/23 10:14 Patient Tobacco Use Status Never used Tobacco 11/18/23 10:14 e-Cigarette/Vaping Use Never Used 11/18/23 10:14 Thrive Assessment: Date of Thrive Assessment Date Thrive assessed 09/03/22 11/18/23 10:14 Const General: healthy appearing, comfortable and no acute distress Nutritional Appearance: average body habitus Orientation/consciousness: patient oriented x3 Limitations: no limitations HENMT Other: Posterior oropharynx is mildly erythematous without petechiae. Tonsils are visualized without swelling and exudates. Head: Yes normal to inspection Ears: hearing grossly normal bilaterally, TM's normal bilaterally and hearing grossly impaired General nose exam: Normal external nose present Face and sinus: Yes normal facial exam Mouth: Normal oral and palatal mucosa present and oropharynx normal Throat: Yes uvula midline Eyes General: appearance normal, both eyes and all related structures Conjunctivae: conjunctivae normal Neck Other: No posterior cervical lymphadenopathy and no tenderness to palpation Neck: Yes normal visual inspection and Yes no lymphadenopathy Resp Effort & Inspection: normal respiratory effort and no cough Auscultation: clear to auscultation bilaterally Cardio Rate: regular rate Rhythm: regular rhythm Skin General skin exam: no rashes or lesions noted Neuro General: patient oriented x3 Psych Attitude: cooperative Thought content: Normal thought content present Insight: Good insight present (Psych) Judgement: Good judgement present (Psych) Results AMB Rapid Strep AMB Rapid Strep Negative Last Edit by Yari Matias PA-C on 11/18/23 12:12 Assessment and Plan Assessment & Plan (1) Sore throat: Code(s): J02.9 - Acute pharyngitis, unspecified Plan: Rapid strep test in office was negative today. Centor criteria is 1 due to absence of cough. No indication for antibiotics at this time, we will send for throat culture to rule out strep pharyngitis. Based on physical exam appears to be viral or allergic in nature. Instructed patient to use Flonase for postnasal drip and use ihey-ozn-pgrxqdy throat lozenges as needed for pain. Agreed to follow up if symptoms worsen or fail to improve. Medications: New fluticasone propionate 50 mcg/actuation (Allergy Relief (fluticasone)) administer into each nostril 1 spray intranasal DAILY 16 grams 0RF Discontinued oseltamivir (Tamiflu) Discontinued Reason: Patient no longer taking 75 mg PO Q12H 5 days 10 caps 0RF Coding Level of Care Code Est Pt Level 3 (16309) Diagnoses Sore throat J02.9
== END 2023-11-18 10:37 | disposition home or self-care (01) ==
PROVIDERS: PCP Physician Assistant
DX: J02.9 Acute pharyngitis, unspecified (principal)
CPT/HCPCS: 87880; 99213

== ENCOUNTER 2024-04-19 08:02 | Outpatient (REF) | payer OTHER, SELFPAY ==
[2024-04-19 09:22] LABS: Hematocrit 36.9 % (37.0-47.0); Hemoglobin 11.9 g/dl (12.0-16.0); Mean Corpuscular HGB Conc 32.2 g/dl (31.0-35.0); Mean Corpuscular Hemoglobin 24.6 pg (27.0-33.0); Mean Corpuscular Volume 76.4 fL (80.0-98.0); Mean Platelet Volume 9.8 fL (9.4-12.3); Platelet Count 216 X10*3/uL (160-400); Red Blood Count 4.83 X10*6/uL (4.20-5.50); Red Cell Distribution Width 14.1 % (11.0-16.0); White Blood Count 4.2 X10*3/uL (4.8-10.8)
[2024-04-19 09:59] LABS: Alanine Aminotransferase 13 U/L (0-31); Albumin Level 4.4 g/dL (3.5-5.0); Alkaline Phosphatase 63 U/L (39-117); Anion Gap 7 (12-20); Aspartate Amino Transferase 16 U/L (5-31); Bilirubin Total 0.6 mg/dL (0.0-1.0); Blood Urea Nitrogen 10 mg/dL (9-16); Carbon Dioxide 29 mmol/L (22-29); Chloride 108 mmol/L (96-108); Estimated Glomerular Filt Rate > 60; Glucose Fasting 88 mg/dL (60-99); Potassium 3.9 mmol/L (3.3-5.1); Sodium 140 mmol/L (135-145)
== END 2024-04-19 08:03 | disposition home or self-care (01) ==
LOC: HO.LAB 08:02
PROVIDERS: PCP Physician Assistant; Visit Provider Physician Assistant
DX: Z00.00 Encounter for general adult medical examination without abnormal findings (principal); K64.9 Unspecified hemorrhoids; L40.9 Psoriasis, unspecified; Z13.1 Encounter for screening for diabetes mellitus
CPT/HCPCS: 36415; 80053; 85027; 96127

== ENCOUNTER 2024-04-19 08:02 | Outpatient (AMB) | payer OTHER, SELFPAY ==
--- NOTE | 2024-04-19 08:10 | MHC.PC.OV ---
Vital Signs 04/19/24 08:11 Height 5 ft 9 in Weight 139 lb BMI 20.5 BP 108/66 Blood Pressure Location Lt brachial Position Sitting Intake Visit Reasons: Annual Exam Intake Note: Patient here for an annual physical exam Procurement Assistant Required: No Accompanied by: Self / Same As Patient Allergies No Known Allergies [No Known Allergies*] Allergy (Verified 04/19/24 08:19) Medication List - Last Reconciled 04/19/24 by Mick Aguila PA-C No Known Home Meds Tobacco use date assessed: 11/18/23 Dental Screening Dental Screen Date: 04/19/24 Did you have a dental visit in the last 12 months?: Yes Did you have a dental problem in the last 6 months where you did not have access to dental care?: No Was dental information given to patient?: Patient has dentist HPI Annual Exam HPI Details Patient is a 34-year-old female here today for routine annual physical. Patient has a past medical history significant for psoriasis. Concerns--> Having intermittent bleeding hemorrhoids since having her child. She reports using creams Sitz baths and other ossy-kag-vimujeg remedies though have not been successful. She reports she would like to see rectal surgeon for evaluation. She does admit to constipation thus will try a stool softener. Vaccines: Up-to-date with COVID vaccine, tetanus vaccine, up-to-date with flu vaccine Shirt Sorter: Followed by OBGYN, up-to-date with Pap [facility] Medical History Asthma Tendinitis of right rotator cuff Thoracic spine pain History of meningitis Surgical History History of hernia surgery Family History Mother High cholesterol Father Diabetes Hypertension Maternal Grandmother Breast cancer, Onset Age: 48 Paternal Grandmother Breast cancer Social History Housing: House Alcohol intake: current Alcohol intake frequency: holidays/special occasions only Patient Tobacco Use Status: Never used Tobacco e-Cigarette/Vaping Use: Never Used Second Hand Smoke Exposure: No service: No Current occupational status: employed 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 1. Little interest or pleasure in doing things: not at all 2. Feeling down, depressed, or hopeless: not at all 3. Trouble falling or staying asleep, or sleeping too much: not at all 4. Feeling tired or having little energy: not at all 5. Poor appetite or overeating: not at all 6. Feeling bad about yourself - or that you are a failure or have let yourself or your family down: not at all 7. Trouble concentrating on things, such as reading the newspaper or watching television: not at all 8. Moving or speaking so slowly that other people could have noticed. Or the opposite - being so fidgety or restless that you have been moving around a lot more than usual: not at all 9. Thoughts that you would be better off or of hurting yourself in some way: not at all Total score: 0 Depression Screening Interpretation: Negative Depression Screening Done: Yes 81859 - PHQ-9 Billing: Yes Source: Developed by Drs. Jason Maxwell, Joie Bolaños, Nash Jeronimo and colleagues, with an educational bina from [employer]. Thrive Questionnaire Date Thrive assessed: 04/13/24 I am a: Patient What is your living situation today?: I have a steady place to live Within the past 12 months, did the food you bought not last and you didn't have the money to get more?: Never true Within the past 12 months, did you worry whether your food would run out before you got money to buy more?: Never true Do you have trouble paying for medicines?: No Do you have trouble getting transportation to medical appointments?: No Do you have trouble paying your heating and electricity bill?: No Do you have trouble taking care of your child, family member or friend?: No Do you have trouble with day-to-day activities such as bathing, preparing meals, shopping, managing finances, etc.?: No Are you currently unemployed and looking for a job?: No Are you interested in more education?: No Please select the resources that you would like help with: None Currently or been in a relationship where the following occur: No concerns reported THRIVE Score: 0 AUDIT C Alcohol Use Questionnaire (AUDIT-C) 1. How often do you have a drink containing alcohol?: Never 3. How often do you have six or more drinks on one occasion?: Never Total Score: 0 DEMETRICE-7 AMB Questionnaire DEMETRICE-7 Date DEMETRICE - 7 assessed: 04/19/24 Feeling nervous, anxious, or on edge: 1 = Several days Not being able to stop or control worryin = Several days Worrying too much about different things: 1 = Several days Trouble relaxin = Several days Being so restless that it is hard to sit still: 0 = Not at all Becoming easily annoyed or irritable: 1 = Several days Feeling afraid as if something awful might happen: 1 = Several days Total DEMETRICE-7 score (0-4 normal; 5-9 mild; 10-14 moderate; 15-21 severe): 6 Source: Developed by Drs. Jason Maxwell, Joie Bolaños, Nash Jeronimo and colleagues, with an educational bina from [employer]. DEMETRICE-7 Assessment Billing DEMETRICE-7 Assessment Tool: DEMETRICE-7 Assessment 56262 Review of Systems Const Denies body aches, Denies chills, Denies excessive sweating, Denies fatigue, Denies fever(s) and Denies headache(s) Eyes Denies blurry vision ENT Denies dysphagia, Denies vertigo, Denies dizziness, Denies headache(s), Denies hearing loss and Denies tinnitus Card Denies chest pain, Denies chest pain with activity, Denies syncope, Denies irregular heart rhythm and Denies dyspnea Resp Denies chest congestion, Denies cough, Denies hemoptysis, Denies dyspnea and Denies wheezing GI Denies abdominal pain, Denies melena, Denies hematochezia, Denies coffee ground emesis, Denies dysphagia, Denies diarrhea, Denies nausea and Denies vomiting Denies urinary frequency, Denies dysuria, Denies urinary hesitancy and Denies urinary urgency Musc Denies arthralgias, Denies limited range of motion, Denies muscle cramps and Denies muscle weakness Skin/Breast Denies rash and Denies skin ulcer Neuro Denies Abnormal speech present, Denies confusion, Denies vertigo, Denies dizziness, Denies syncope, Denies headache(s), Denies memory loss and Denies seizure-like activity Psych Denies anxiety, Denies confusion, Denies depression, Denies memory loss, Denies panic attacks and Denies paranoia Endo Denies excessive sweating, Denies fatigue, Denies flushing, Denies polydipsia and Denies polyuria Aller/Immun Denies wheezing Physical exam (Primary Care) Vital Signs: Last Vital Signs BP 108/66 04/19/24 08:11 BMI result Body Mass Index 20.5 Tobacco/Smoking Status: Tobacco use Status Tobacco use date assessed 11/18/23 11/18/23 10:14 Patient Tobacco Use Status Never used Tobacco 11/18/23 10:14 e-Cigarette/Vaping Use Never Used 11/18/23 10:14 Depression Screening Interpretation: Negative Thrive Assessment: Date of Thrive Assessment Date Thrive assessed 04/13/24 04/13/24 11:29 Currently or been in a relationship where the following occur: No concerns reported Const General: cooperative, comfortable, no acute distress, alert and awake; No confusion Orientation/consciousness: oriented to person, oriented to place, patient oriented x3 and No confusion HENMT Head: Yes normocephalic Ears: external ears normal and TM's normal bilaterally Face and sinus: No sinus tenderness Mouth: Normal oral and palatal mucosa present and tongue normal Teeth and gingiva: dentition normal and gingiva normal Throat: Yes posterior oropharynx normal, Yes tonsils normal and Yes uvula midline Eyes Conjunctivae: conjunctivae normal Sclerae: sclerae normal Pupils: Equal, round and reactive pupils present EOM: EOMs intact bilaterally Direct Ophthalmoscopy: No no photophobia Neck Neck: Yes no lymphadenopathy, No tender and Yes no JVD Thyroid: Thyroid normal Carotids: no bruits Chest Chest palpation & inspection: no tenderness Resp Effort & Inspection: normal respiratory effort, no audible wheezes, not labored and no stridor Auscultation: no crackles, no rales, no rhonchi and no wheezes Cardio Jugular venous distension: no JVD Rate: regular rate, not bradycardic and not tachycardic Rhythm: regular rhythm Bruits: no carotid bruits Peripheral pulses: Peripheral pulses 2+ throughout GI Inspection: Yes normal to inspection, No abdominal wall ecchymosis and No visible herniation Palpation (GI): Soft to palpation, nontender, no guarding, not rigid and No hepatosplenomegaly present Auscultation: normoactive bowel sounds General: Yes no CVA tenderness Back/Spine/Pelvis Back: no CVA tenderness and No back tenderness Cervical Spine: cervical ROM normal Thoracic/Lumbar Spine: thoracic and lumbar spine normal to inspection, straight leg raise negative bilaterally, No thoraco-lumbar ROM limited and No lumbar spinal tenderness Skin Lesions: no lesions Rashes: no rashes Wounds: no wounds Neuro General: oriented to person, oriented to place, patient oriented x3, CN's II-XI intact bilaterally and No confusion Cranial nerves: Yes Equal, round and reactive pupils present and Yes Normal accommodation reflex present Cognition (Neuro): normal cognition Speech: No Abnormal speech present Gait exam (Neuro): Normal gait present Motor exam (neuro): 5/5 motor strength present throughout Extrem Right upper extremity: full ROM; no cyanosis Left upper extremity: full ROM; no cyanosis Right lower extremity: no edema Left lower extremity: no edema Psych Appearance: grossly normal Mental Status: mental status grossly normal Affect: normal affect Attitude: cooperative Thought process: Normal thought process present Coding Level of Care Code Est Pt Prev Care 18-39y(77394) Diagnoses Annual physical exam Z00.00 Bleeding hemorrhoids K64.9 Psoriasis L40.9 Additional Codes PHQ-9 - 93888 - PHQ-9 Billing: Yes ([id number]) DEMETRICE-7 Assessment Billing - DEMETRICE-7 Assessment Tool: DEMETRICE-7 Assessment 99297 ([id number]) Assessment & Plan Assessment & Plan (1) Annual physical exam: Code(s): Z00.00 - Encounter for general adult medical examination without abnormal findings Category: Medical Plan: As per HPI (2) Bleeding hemorrhoids: Code(s): K64.9 - Unspecified hemorrhoids Category: Medical Plan: Having intermittently symptomatic and bleeding hemorrhoids over last several months. Has tried tuvp-xuo-upapsit cream since it is baths without success. Will like to speak with rectal surgeon. (3) Psoriasis: Code(s): L40.9 - Psoriasis, unspecified Category: Medical Plan: Has psoriasis over her scalp, has used topical steroids on an as needed basis with decent affect. Orders: Orders Complete Blood Count no Diff Today K64.9 - Unspecified hemorrhoids Comprehensive [place]. Panel Fast Today Z13.1 - Encounter for screening for diabetes mellitus Referrals General Surgery Referral K64.9 - Unspecified hemorrhoids Medications: New docusate sodium (Colace) 100 mg PO BID 30 days 60 caps 1RF K64.9 - Unspecified hemorrhoids
[2024-04-19 08:11] VITALS: BP 108/66; BMI 20.5
== END 2024-04-19 08:30 | disposition home or self-care (01) ==
PROVIDERS: PCP Physician Assistant; Visit Provider Physician Assistant
DX: Z00.00 Encounter for general adult medical examination without abnormal findings (principal); K64.9 Unspecified hemorrhoids; L40.9 Psoriasis, unspecified

== ENCOUNTER 2024-05-24 15:53 | Outpatient (AMB) | payer OTHER, SELFPAY ==
--- NOTE | 2024-05-24 16:00 | MHC.PC.OV ---
Vital Signs 05/24/24 16:01 Height 5 ft 9 in Weight 141 lb 2 oz BMI 20.8 BP 112/72 Blood Pressure Location Lt brachial Position Sitting Pulse 62 Pulse Source Pulse Oximeter Temp 97.7 F Temp Source Temporal Artery Scan Pulse Oximetry (%) 97 Oxygen Delivery Method Room Air Intake Visit Reasons: upper respiratory Intake Note: Patient is here to follow up on upper respiratory. Complaint of sore throat, running nose, congestion, chills, body aches, loss of voice, coughing, on going since 05/14/24. OTC does not help. Home Covid neg. Donor Relations Associate Required: No Char Filter Tank Tender Head: Not Required per policy Accompanied by: Self / Same As Patient Allergies No Known Allergies [No Known Allergies*] Allergy (Verified 05/24/24 16:01) Medication List - Last Reconciled 05/24/24 by Yari Matias PA-C docusate sodium (Colace) 100 mg PO BID 30 days Tobacco use date assessed: 05/24/24 Dental Screening Dental Screen Date: 05/24/24 Did you have a dental visit in the last 12 months?: Yes Did you have a dental problem in the last 6 months where you did not have access to dental care?: No Was dental information given to patient?: Patient has dentist HPI upper respiratory HPI Details 34-year-old female with no significant past medical history last seen for annual exam 03/2024 coming in for acute problem. Patient tells us today she has been sick for a little over week and half for with cough, congestion and occasional sore throat. More recently in the last several days she has been developing sinus pressure with green phlegm in green nasal discharge. Denies any recorded fevers but is having body aches and occasional chills. Does have a slight nonproductive cough. Has been using Mucinex and Delsym for her symptoms. 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 1. Little interest or pleasure in doing things: not at all 2. Feeling down, depressed, or hopeless: not at all 3. Trouble falling or staying asleep, or sleeping too much: not at all 4. Feeling tired or having little energy: not at all 5. Poor appetite or overeating: not at all 6. Feeling bad about yourself - or that you are a failure or have let yourself or your family down: not at all 7. Trouble concentrating on things, such as reading the newspaper or watching television: not at all 8. Moving or speaking so slowly that other people could have noticed. Or the opposite - being so fidgety or restless that you have been moving around a lot more than usual: not at all 9. Thoughts that you would be better off or of hurting yourself in some way: not at all Total score: 0 Depression Screening Interpretation: Negative Depression Screening Done: Yes Source: Developed by Drs. Jason Maxwell, Joie Bolaños, Nash Jeronimo and colleagues, with an educational bina from [facility]. Thrive Questionnaire Date Thrive assessed: 05/24/24 I am a: Patient What is your living situation today?: I have a steady place to live Within the past 12 months, did the food you bought not last and you didn't have the money to get more?: Never true Within the past 12 months, did you worry whether your food would run out before you got money to buy more?: Never true Do you have trouble paying for medicines?: No Do you have trouble getting transportation to medical appointments?: No Do you have trouble paying your heating and electricity bill?: No Do you have trouble taking care of your child, family member or friend?: No Do you have trouble with day-to-day activities such as bathing, preparing meals, shopping, managing finances, etc.?: No Are you currently unemployed and looking for a job?: No Are you interested in more education?: No Please select the resources that you would like help with: None Currently or been in a relationship where the following occur: No concerns reported THRIVE Score: 0 AUDIT C Alcohol Use Questionnaire (AUDIT-C) 1. How often do you have a drink containing alcohol?: Never Total Score: 0 DEMETRICE-7 AMB Questionnaire DEMETRICE-7 Date DEMETRICE - 7 assessed: 05/24/24 Feeling nervous, anxious, or on edge: 0 = Not at all Not being able to stop or control worryin = Not at all Worrying too much about different things: 0 = Not at all Trouble relaxin = Not at all Being so restless that it is hard to sit still: 0 = Not at all Becoming easily annoyed or irritable: 0 = Not at all Feeling afraid as if something awful might happen: 0 = Not at all Total DEMETRICE-7 score (0-4 normal; 5-9 mild; 10-14 moderate; 15-21 severe): 0 Source: Developed by Drs. Jason Maxwell, Joie Bolaños, Nash Jeronimo and colleagues, with an educational bina from [facility]. Review of Systems Const Reports body aches, Reports chills, Reports fatigue, Denies fever(s), Reports headache(s) and Denies poor appetite Eyes Reports no additional complaints ENT Denies dizziness, Reports otalgia, Reports facial pain, Reports headache(s), Reports sinus pain, Reports sinus pressure, Reports sore throat and Denies throat swelling Card Denies chest pain, Denies lightheadedness and Denies dyspnea Resp Denies cough and Denies dyspnea GI Denies abdominal pain, Denies nausea and Denies vomiting Reports no additional complaints Musc Reports no additional complaints and Denies abnormal gait Skin/Breast Reports system reviewed and no additional complaints, except as documented Neuro Denies abnormal gait, Denies dizziness and Reports headache(s) Psych Reports no additional complaints Endo Reports fatigue Aller/Immun Denies throat swelling Physical exam (Primary Care) Vital Signs: Last Vital Signs Pulse 62 05/24/24 16:01 BP 112/72 05/24/24 16:01 Pulse Ox 97 05/24/24 16:01 Oxygen Delivery Method Room Air 05/24/24 16:01 BMI result Body Mass Index 20.8 Tobacco/Smoking Status: Tobacco use Status Tobacco use date assessed 05/24/24 05/24/24 16:02 Patient Tobacco Use Status Never used Tobacco 05/24/24 16:02 e-Cigarette/Vaping Use Never Used 05/24/24 16:02 PHQ-9: PHQ-9 Score PHQ-9: Total score 0 05/24/24 16:02 Depression Screening Interpretation: Negative Thrive Assessment: Date of Thrive Assessment Date Thrive assessed 05/24/24 05/24/24 16:02 Currently or been in a relationship where the following occur: No concerns reported Const General: cooperative, healthy appearing, comfortable and no acute distress Orientation/consciousness: patient oriented x3 HENMT Head: Yes normocephalic Ears: hearing grossly normal bilaterally, TM's normal bilaterally and EAC's normal General nose exam: Normal external nose present Face and sinus: Yes sinus tenderness Mouth: Normal oral and palatal mucosa present and oropharynx normal Throat: Yes posterior oropharynx normal, Yes tonsils normal and Yes uvula midline Eyes General: appearance normal, both eyes and all related structures Conjunctivae: conjunctivae normal Neck Neck: Yes full ROM and Yes no lymphadenopathy Resp Effort & Inspection: normal respiratory effort Auscultation: clear to auscultation bilaterally, no crackles, no rales, no rhonchi and no wheezes Cardio Rate: regular rate Rhythm: regular rhythm Skin General skin exam: no rashes or lesions noted Neuro General: patient oriented x3 Gait exam (Neuro): Normal gait present Extrem General: Yes normal to inspection, Yes full ROM and No edema Psych Affect: normal affect Attitude: cooperative Insight: Good insight present (Psych) Judgement: Good judgement present (Psych) Coding Level of Care Code Est Pt Level 3 (38014) Diagnoses Bacterial sinusitis J32.9; B96.89 Assessment & Plan Assessment & Plan (1) Bacterial sinusitis: Code(s): J32.9 - Chronic sinusitis, unspecified; B96.89 - Other specified bacterial agents as the cause of diseases classified elsewhere Category: Medical Plan: Patient has been having increasing sinus pressure and pain along with upper respiratory symptoms. Symptoms have been persistent for close to 2 weeks and been worsening. We will give patient benzonatate for occasional cough and trial azithromycin for symptoms. Advised patient to reach out if symptoms do not improve with this medication or if they worsen. Drink plenty of water and make sure to take the medication with food. May continue with Mucinex and Delsym. Patient also complaining of occasional bleeding while blowing her nose. Advised to use saline nasal spray and humidifier. Plan This note was constructed using voice recognition software. While every effort has been made to ensure accuracy and qc lab technician, still areas may have been included sometimes these areas may affect the content or meeting of the given symptoms. Total time spent caring for the patient today was 20 minutes. This includes time spent before the visit reviewing the chart, time spent during the visit, and time spent after the visit and documentation. Medications: New azithromycin For 500 mg dose pack: take 500 mg once daily for 3 days PO 3 tabs 0RF benzonatate 100 mg PO BID PRN 30 caps 0RF cough
[2024-05-24 16:01] VITALS: BP 112/72; PULSE 62; TEMP 36.5; O2SAT 97; BMI 20.8
== END 2024-05-24 16:18 | disposition home or self-care (01) ==
LOC: HO.HMCH 15:53
PROVIDERS: PCP Physician Assistant
DX: J32.9 Chronic sinusitis, unspecified (principal); B96.89 Other specified bacterial agents as the cause of diseases classified elsewhere

== ENCOUNTER 2024-06-02 09:21 | Outpatient (AMB) | payer OTHER, SELFPAY ==
[2024-06-02 09:31] VITALS: BP 124/70; PULSE 77; BMI 20.4
--- NOTE | 2024-06-02 09:31 | MHC.OFFVIS ---
Vital Signs 06/02/24 09:31 Height 5 ft 9 in Weight 138 lb 2 oz BMI 20.4 BP 124/70 Blood Pressure Location Rt brachial Position Sitting Pulse 77 Intake Visit Reasons: hemorrhoids Intake Note: This patient presents for hemorrhoids. Pt c/o; reports rectal bleeding, reports chronic constipation since she was a child , reports constant rectal pain, occasional straining with bowel movements. Dog License Officer Supervisor Required: No Business Services Sales Agent: Business Services Sales Agent offered & declined Accompanied by: Self / Same As Patient Allergies No Known Allergies [No Known Allergies*] Allergy (Verified 06/02/24 09:38) Medication List - Last Reconciled 06/02/24 by Joseph Elder MD azithromycin For 500 mg dose pack: take 500 mg once daily for 3 days PO benzonatate 100 mg PO BID PRN docusate sodium (Colace) 100 mg PO BID 30 days multivitamin 1 tab PO DAILY ondansetron 8 mg PO Q12H PRN 7 days HPI HPI hemorrhoids: Details: 34-year-old female here for hemorrhoid issues. She says she has had hemorrhoids for many years since she was a teenager. She says that this seemed to have been aggravated by 2 years ago. She says that her hemorrhoids symptoms have been worsening. She describes periodic pain and swelling of her hemorrhoids. She would occasionally sees some blood as well. She says she has a history of constipation for a long time. She is healthy overall. [facility] Medical History (Updated 06/02/24 @ 09:58 by Joseph Elder MD) Hemorrhoids with complication Asthma Tendinitis of right rotator cuff Thoracic spine pain History of meningitis Surgical History History of hernia surgery Family History Mother High cholesterol Father Diabetes Hypertension Maternal Grandmother Breast cancer, Onset Age: 48 Paternal Grandmother Breast cancer Social History Housing: House Alcohol intake: current Alcohol intake frequency: holidays/special occasions only Patient Tobacco Use Status: Never used Tobacco e-Cigarette/Vaping Use: Never Used Second Hand Smoke Exposure: No service: No Current occupational status: employed 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 Current occupational exposures/hazards: No Cognitive needs: No Hearing needs: No Vision needs: No Review of Systems Const Denies chills and Denies fever(s) Card Denies chest pain, Denies dyspnea and Denies dyspnea on exertion Resp Denies cough, Denies dyspnea and Denies dyspnea on exertion GI Reports hematochezia and Denies change in bowel habits Denies hematuria Musc Denies back pain and Denies limited range of motion Neuro Denies focal weakness and Denies convulsions Psych Denies depression and Denies mood swings Physical Exam Vital Signs: Last Vital Signs Pulse 77 06/02/24 09:31 BP 124/70 06/02/24 09:31 BMI result Body Mass Index 20.4 Const General: comfortable and no acute distress Orientation/consciousness: patient oriented x3 Neck Neck: Yes no lymphadenopathy Resp Auscultation: clear to auscultation bilaterally Cardio Rhythm: regular rhythm GI Other: Rectal exam shows a hemorrhoidal column, external on the left posterior and a smaller 1 in the right Palpation (GI): Soft to palpation, nontender and no guarding Neuro General: patient oriented x3 Office Procedures Anoscopy She was in gualberto-knife position. The anoscope was gently inserted. A full examination of the anal canal was done. She did have a mixed hemorrhoidal column on the left posterior he was moderately size. There was a smaller column on the right side. There was no fissure. There was no inflammation. There was no ulceration. So bleeding. There was no induration on digital exam. [id number] Assessment & Plan Assessment & Plan (1) Hemorrhoids with complication: Code(s): K64.8 - Other hemorrhoids Category: Medical Plan: She seems to have worsening of symptoms of her hemorrhoids with bleeding, inflammation and pain. She is contemplating on proceeding with hemorrhoidectomy. I explained to her the technique of exam under anesthesia and hemorrhoidectomy. I reviewed with the risks including but not limited to bleeding, infections, postop pain, as well as the benefits and alternatives. I reviewed with her what to expect postoperatively She says that she will call the office when she decides to proceed as she has a busy schedule at this time. Coding Level of Care Code New Pt Level 3 (81671) Diagnoses Hemorrhoids with complication K64.8 CPT Codes Details - CPT: [id number] ([id number])
== END 2024-06-02 10:00 | disposition home or self-care (01) ==
PROVIDERS: PCP Physician Assistant; Visit Provider Surgery
DX: K64.8 Other hemorrhoids (principal)
CPT/HCPCS: 46600; 99203

== ENCOUNTER → 2024-06-02 09:21 | Outpatient (BNVA) | payer OTHER, SELFPAY | PROVIDERS: PCP Physician Assistant; Visit Provider Surgery | DX: K64.8 Other hemorrhoids (principal) | CPT/HCPCS: 46600 ==

== ENCOUNTER 2025-02-11 13:20 | Outpatient (AMB) | payer OTHER, SELFPAY ==
--- NOTE | 2025-02-11 13:36 | MHC.PC.OV ---
Vital Signs 02/11/25 13:37 Height 5 ft 9 in Weight 146 lb 8 oz BMI 21.6 BP 100/68 Blood Pressure Location Lt brachial Position Sitting Pulse 68 Pulse Source Pulse Oximeter Temp 97.5 F Temp Source Temporal Artery Scan Pulse Oximetry (%) 99 Oxygen Delivery Method Room Air Intake Visit Reasons: rash Intake Note: Patient is here to follow up on Rash on both legs and arms. Lab Tech Required: No Greens Or Grounds Superintendent: Not Required per policy Accompanied by: Self / Same As Patient Allergies No Known Allergies (No Known Allergies*) Allergy (Verified 02/11/25 13:37) Tobacco use date assessed: 02/11/25 Dental Screening Dental Screen Date: 05/24/24 HPI HPI Comments History of Present Illness Details 34 y/o Female patient who presents to the clinic today for the same day visit. Pt c/o Rash covering both her Lower extremities. Rash started on her Lower Legs; very itchy and burning at times. Rash has been spreading to her Chest, back and upper Arms. Denies any URI symptoms. Denies any changes to her Soap, detergent, cosmetic products or Medicines. Denies any allergies to Food. Her medical h/o significant for Psoriasis (On scalp, Eyebrows and Behind Ears) but has not had an outbreak for years now. She does have a young child - 2 year old Boy who goes to Daycare. The Child is healthy and asymptomatic. Denies any contact to Irritants. Denies any recent Travels. [facility] Medical History (Updated 02/11/25 @ 13:55 by Nona Martinez NP) Rash and nonspecific skin eruption Hemorrhoids with complication Asthma Tendinitis of right rotator cuff Thoracic spine pain History of meningitis Surgical History History of hernia surgery Family History Mother High cholesterol Father Diabetes Hypertension Maternal Grandmother Breast cancer, Onset Age: 48 Paternal Grandmother Breast cancer Social History Housing: House Alcohol intake: current Alcohol intake frequency: holidays/special occasions only Patient Tobacco Use Status: Never used Tobacco e-Cigarette/Vaping Use: Never Used Second Hand Smoke Exposure: No service: No Current occupational status: employed 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 1. Little interest or pleasure in doing things: not at all 2. Feeling down, depressed, or hopeless: not at all 3. Trouble falling or staying asleep, or sleeping too much: not at all 4. Feeling tired or having little energy: not at all 5. Poor appetite or overeating: not at all 6. Feeling bad about yourself - or that you are a failure or have let yourself or your family down: not at all 7. Trouble concentrating on things, such as reading the newspaper or watching television: not at all 8. Moving or speaking so slowly that other people could have noticed. Or the opposite - being so fidgety or restless that you have been moving around a lot more than usual: not at all 9. Thoughts that you would be better off or of hurting yourself in some way: not at all Total score: 0 Depression Screening Interpretation: Negative Depression Screening Done: Yes Source: Developed by Drs. Jason Maxwell, Joie Bolaños, Nash Jeronimo and colleagues, with an educational bina from [employer]. Thrive Questionnaire Date Thrive assessed: 02/11/25 I am a: Patient What is your living situation today?: I have a steady place to live Within the past 12 months, did the food you bought not last and you didn't have the money to get more?: Never true Within the past 12 months, did you worry whether your food would run out before you got money to buy more?: Never true Do you have trouble paying for medicines?: No Do you have trouble getting transportation to medical appointments?: No Do you have trouble paying your heating and electricity bill?: No Do you have trouble taking care of your child, family member or friend?: No Do you have trouble with day-to-day activities such as bathing, preparing meals, shopping, managing finances, etc.?: No Are you currently unemployed and looking for a job?: No Are you interested in more education?: No Please select the resources that you would like help with: None Currently or been in a relationship where the following occur: No concerns reported THRIVE Score: 0 AUDIT C Alcohol Use Questionnaire (AUDIT-C) 1. How often do you have a drink containing alcohol?: Never 3. How often do you have six or more drinks on one occasion?: Never Total Score: 0 DEMETRICE-7 AMB Questionnaire DEMETRICE-7 Date DEMETRICE - 7 assessed: 05/24/24 Feeling nervous, anxious, or on edge: 0 = Not at all Not being able to stop or control worryin = Not at all Worrying too much about different things: 0 = Not at all Trouble relaxin = Not at all Being so restless that it is hard to sit still: 0 = Not at all Becoming easily annoyed or irritable: 0 = Not at all Feeling afraid as if something awful might happen: 0 = Not at all Total DEMETRICE-7 score (0-4 normal; 5-9 mild; 10-14 moderate; 15-21 severe): 0 Source: Developed by Drs. Jason Maxwell, Joie Bolaños, Nash Jeronimo and colleagues, with an educational bina from [employer]. Review of Systems Const All systems reviewed & are unremarkable except as noted in HPI and below Physical exam (Primary Care) Vital Signs: Last Vital Signs Temp 97.5 F 02/11/25 13:37 Pulse 68 02/11/25 13:37 BP 100/68 02/11/25 13:37 Pulse Ox 99 02/11/25 13:37 Oxygen Delivery Method Room Air 02/11/25 13:37 BMI result Body Mass Index 21.6 Tobacco/Smoking Status: Tobacco use Status Tobacco use date assessed 02/11/25 02/11/25 13:40 Patient Tobacco Use Status Never used Tobacco 02/11/25 13:40 e-Cigarette/Vaping Use Never Used 02/11/25 13:40 PHQ-9: PHQ-9 Score PHQ-9: Total score 0 02/11/25 13:40 Depression Screening Interpretation: Negative Thrive Assessment: Date of Thrive Assessment Date Thrive assessed 02/11/25 02/11/25 13:40 Currently or been in a relationship where the following occur: No concerns reported Const General: no acute distress Nutritional Appearance: well nourished Orientation/consciousness: patient oriented x3 Resp Effort & Inspection: normal respiratory effort Cardio Heart sounds: S1 normal heart sound present and S2 normal heart sound present Skin Rashes: rashes noted (Red small Pinpoint Rash covering B/L LE, and Back.) multiple locations Neuro General: patient oriented x3, gait normal and moves all extremities Psych Speech and movement: Normal speech and movement present Coding Level of Care Code Est Pt Level 4 (00518) Diagnoses Rash and nonspecific skin eruption R21 Time Spent (min) 20 Assessment & Plan Assessment & Plan (1) Rash and nonspecific skin eruption: Code(s): R21 - Rash and other nonspecific skin eruption Category: Medical Plan: DDx's: Pityriasis vs Contact Dermatitis vs Eczema vs Tinea. Will Treat Rash with Mild Topical Steroid Cream. Advised to use 2 weeks on, then Pause for One week. May resume 2 more weeks if not resolved. Advised to use Anti-histamine OTC medications such as Claritin/Zyrtec/Benadrly Medications: New triamcinolone acetonide 0.1% 1 appl topical BID 80 grams 2RF R21 - Rash and other nonspecific skin eruption Discontinued ondansetron Discontinued Reason: Patient Completed Course 8 mg PO Q12H 7 days PRN 14 tabs 0RF nausea and vomiting docusate sodium (Colace) Discontinued Reason: Patient Completed Course 100 mg PO BID 30 days 60 caps 1RF K64.9 - Unspecified hemorrhoids azithromycin Discontinued Reason: Patient Completed Course For 500 mg dose pack: take 500 mg once daily for 3 days PO 3 tabs 0RF benzonatate Discontinued Reason: Patient Completed Course 100 mg PO BID PRN 30 caps 0RF cough
[2025-02-11 13:37] VITALS: BP 100/68; PULSE 68; TEMP 36.4; O2SAT 99; BMI 21.6
--- OUTSIDE RECORDS SUMMARY | 2025-02-11 14:42 | XMS_ITS | Clinical Summary ---
Author Organization [facility] Address [address] [place] [id number] Phone Care Team Providers Care Box Maker Wood Name Role Phone Unavailable Primary Care Provider Unavailabl e Social History Tobacco Use Types Packs/Day Years Used Date Smoking Tobacco: Never Assessed Education Answer Date Recorded Are you interested in more education? Not on shama e 09/14/2022 Are you concerned about learning? Not on file 09/14/2022 No 09/14/2022 No 09/14/2022 Digital Access Answer Date Recorded No 10/15/2022 No 10/15/2022 Reliable internet access at home? Not on file 10/15/2022 Device with a working camera? Not on file Comments Unknown Sex and Gender Information Value Date Recorded Sex Assigned at Not on file Legal Sex Female 4:24 PM EST Gender Identity Not on file Sexual Orientation Not on file Plan of Treatment Health Maintenance Due Date Last Done Comments Adult Td,Tdap Booster 1989 DEPRESSION SCREENING 2001 SMOKING Hx and SMOKELESS TOB ACCO SCREENING 2002 HEPATITIS C SCREENING 2007 HIV ONE-TIME SCREENING (18-6 5 YEARS) 2007 PAP SMEAR 2010 INFLUENZA VACCINE (#1) 2024 COVID-19 VACCINE (2023-2 5 season) 2025 HEPATITIS A VACCINES Aged Out No long er eligible based on patient's age to complete this topic HIB VACCINES Aged Out No longer eligi ble based on patient's age to complete this topic MENINGOCOCCAL VACCINES (ACWY) Aged Out No longer eligible based on patient's age to complete this topic MENINGOCOCCAL VACCINES (B) Aged Out N o longer eligible based on patient's age to complete this topic PNEUMOCOCCAL VACCINES (0-49 years) Aged Out No longer eligible based on patient's age to complete this topic Medical Devices Not on file Additional Source Comments The information contained in this document represents components of the legal health record. It is not the complete legal health record.[facility]
== END 2025-02-11 13:52 | disposition home or self-care (01) ==
LOC: HO.HMCH 13:21
PROVIDERS: PCP Physician Assistant; Visit Provider Nurse Practitioner Family
DX: R21 Rash and other nonspecific skin eruption (principal)

== ENCOUNTER 2025-02-21 14:52 | Outpatient (AMB) | payer OTHER, SELFPAY ==
[2025-02-21 14:54] VITALS: BMI 21.6
--- NOTE | 2025-02-21 14:54 | A.OFFVIS_ITS ---
Vital Signs 02/21/25 14:54 Height 5 ft 9 in Weight 146 lb 7.99 oz BMI 21.6 Intake Visit Reasons: bleeding hemorrhoids Intake Note: This patient presents for an assessment for rectal bleeding. Pt c/o; reports bright red blood per rectum 02/18/2025, Hx constipation, reports always has pain due to hemorrhoids, reports intermittent abdominal pain. Fitness Services Manager Required: No Nurse Licensed Practical: Nurse Licensed Practical Present ([place]) Accompanied by: Self / Same As Patient Allergies No Known Allergies (No Known Allergies*) Allergy (Verified 02/21/25 15:01) Medication List - Last Reconciled 02/21/25 by Joseph Elder MD drospirenone-ethinyl estradiol 3-0.02 mg (Lela (28)) 1 tab PO DAILY multivitamin 1 tab PO DAILY triamcinolone acetonide 0.1% 1 appl topical BID HPI HPI bleeding hemorrhoids: Details: [age] year old female here for bleeding hemorrhoids. She is known to me for hemorrhoid issues. She apparently has a long history of pain and bleeding in the past. I had seen her last May,. She has been planning to go ahead with hemorrhoidectomy She says that starting 3 days ago, she had been noticing bright blood per rectum. Denies any pain. She wanted her hemorrhoids checked again today so she called the office She describes that the blood that she sees on the toilet bowl a separate from the brown stools. She admits to a history of constipation [facility] Medical History Rash and nonspecific skin eruption Hemorrhoids with complication Asthma Tendinitis of right rotator cuff Thoracic spine pain History of meningitis Surgical History History of hernia surgery Family History Mother High cholesterol Father Diabetes Hypertension Maternal Grandmother Breast cancer, Onset Age: 48 Paternal Grandmother Breast cancer Social History Housing: House Alcohol intake: current Alcohol intake frequency: holidays/special occasions only Patient Tobacco Use Status: Never used Tobacco e-Cigarette/Vaping Use: Never Used Second Hand Smoke Exposure: No service: No Current occupational status: employed 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 Current occupational exposures/hazards: No Cognitive needs: No Hearing needs: No Vision needs: No Review of Systems Const Denies chills and Denies fever(s) Card Denies chest pain, Denies dyspnea and Denies dyspnea on exertion Resp Denies cough, Denies dyspnea and Denies dyspnea on exertion GI Reports hematochezia and Denies change in bowel habits Denies hematuria Musc Denies back pain and Denies limited range of motion Neuro Denies focal weakness and Denies convulsions Psych Denies depression and Denies mood swings Physical Exam Vital Signs: BMI result Body Mass Index 21.6 Const General: comfortable and no acute distress Orientation/consciousness: patient oriented x3 Neck Neck: Yes no lymphadenopathy Resp Auscultation: clear to auscultation bilaterally Cardio Rhythm: regular rhythm GI Other: Rectal exam shows non bulky external hemorrhoids a left and right Palpation (GI): Soft to palpation, nontender and no guarding Neuro General: patient oriented x3 Office Procedures Anoscopy She was in kneeling gualberto-knife position. The anoscope was gently inserted. A full examination of the anal canal was done. She did have this mixed internal and external hemorrhoidal columns on both the left and right side. These are non bulky. I do not see any thrombosis. I did not see any fissure or ulceration. I do not see any bleeding currently. There was no induration on d igital exam. [id number] Assessment & Plan Assessment & Plan (1) Bleeding hemorrhoids: Code(s): K64.9 - Unspecified hemorrhoids Category: Medical Plan: She is known to me for bleeding hemorrhoids. Repeat anoscopy today does not suggest any new lesions or any fissure or lesion. Her description is consistent with outlet bleeding from her hemorrhoids Again she understands the option of proceeding with hemorrhoidectomy at some point. She says she will try to do this when she has a better work schedule. I did explain to her the option of taking Metamucil to help with her bowel movements for now. I told her this is welcome to come back to the office any time if she needs to be re-examined. Coding Level of Care Code Est Pt Level 3 (83766) Diagnoses Bleeding hemorrhoids K64.9 CPT Codes Details - CPT: [id number] ([id number])
--- OUTSIDE RECORDS SUMMARY | 2025-02-21 17:15 | XMS_ITS | Encounter Summary ---
Author Organization [facility] Address [address] [place] [address] Phone Care Team Providers Care Switchboard Mechanic Name Role Phone Sarah Carbajal MD Primary Care Provider Encounter Details Date Type Department Care Team (Late st Contact Info) Description 12/04/2010 Documentation EM Family Medicine [address] [place] [address] Family Medicine, Physician [address] [place], [place] [id number] Social History Tobacco Use Types Packs/Day Years Used Date Smoking Tobacco: Never Assessed Comments Unknown Sex and Gender Information Value Date Recorded Sex Assigned at Not on file Legal Sex Female 4:40 PM EDT Gender Identity Not on file Sexual Orientation Not on file documented as of this encounter Plan of Treatment Not on file documented as of this encounter Visit Diagnoses Not on filedocumented in this encounter Care Teams Switchboard Mechanic Relationship Specialty Start Date End Date Sarah Carbajal MD [address] [place] [address] [place] [address] PCP - General 12/27/16 12/24/22 documented as of this encounter
--- OUTSIDE RECORDS SUMMARY | 2025-02-21 17:15 | XMS_ITS | Encounter Summary ---
Author Organization [facility] Address [address] [place] [address] Phone Care Team Providers Care Electrical Installation Inspector Name Role Phone Sarah Carbajal MD Primary Care Provider Encounter Details Date Type Department Care Team (Late st Contact Info) Description 12/03/2011 Documentation EM Family Medicine [address] [place] [address] Family Medicine, Physician [address] [place], [place] [phone] Social History Tobacco Use Types Packs/Day Years [...] on filedocumented in this encounter Care Teams Electrical Installation Inspector Relationship Specialty Start Date End Date Sarah Carbajal MD [address] [place] [address] [place] [address] PCP - General 12/27/16 12/24/22 documented as of this encounter
--- OUTSIDE RECORDS SUMMARY | 2025-02-21 17:15 | XMS_ITS | Clinical Summary ---
Author Organization [facility] Address [address] [place] [phone] Phone Care Team Providers Care Manager Of Broadcast Content Name Role Phone Unavailable Primary Care Provider Unavailabl e Immunizations Immunization Administration Dates Next Due DTP 05/18/1999, 4,11/15/1990,09/15,1989 Hep B, ped/adol 03/25/2002,11/11/2001,12/17/2000 Hib (PRP-T) 09/15/1990 IPV 05/18/1999, 4,11/15/1990,07/16 Influenza, injectable, trivalent 03/20/2005 MMR 06/18/1994,09/15/1990 Meningococcal Conj (Menactra) MCV4P 10/09/2007 Td (adult) (MBL), 2 Lf tetan us toxoid, PF, adsorbed 11/11/2001 Tdap 10/09/2007 Family History Relation Name Status Comments Brother Alive Brother: Alive and well Father Alive Father: Hyperte nsion, diabetes Mother Alive Mother: Hyperli pidemia Other 1 grandmother: As thma Other 2 grandparents: E levated cholesterol, Alive and well, Diabetes mellitus Sister Alive Sister: Polycys tic ovarian syndrome Social History Tobacco Use Types Packs/Day Years Used Date Smoking Tobacco: Never Assessed Comments Unknown Sex and Gender Information Value Date Recorded Sex Assigned at Not on file Legal Sex Female 4:40 PM EDT Gender Identity Not on file Sexual Orientation Not on file Last Filed Vital Signs Vital Sign Reading Time Taken Comments Blood Pressure 110/70 12/03/2010 12:00 AM EDT Pulse - - Temperature - - Respiratory Rate - - Oxygen Saturation - - Inhaled Oxygen Concentration - - Weight 72.6 kg (160 lb) 12/03/2010 12:00 AM EDT Height 174.8 cm (5' 8.8 ) 12/03/2010 12:00 AM ED T Body Mass Index 23.77 12/03/2010 12:00 AM EDT Plan of Treatment Health Maintenance Due Date Last Done Comments Varicella Vaccines (1 of 2 - 13+ 2-dose series) 2002 HPV Vaccines (1 - 3-dose SCDM series) 02/22/2016 DTaP,Tdap,and Td Vaccines (8 - Td or Tdap) 10/08/2017 10/09/2007, 11/11/2001, 05/18/1999, Additional history exists Influenza Vaccines (#1) 2024 03/20/2005 COVID-19 Vaccine ( season) 2025 HIB Vaccines Completed 09/15/1990 MMR Vaccines Completed 06/18/1994, 09/15/1990 IPV Vaccines Completed 05/18/1999, 07/19, 11/15/1990, Additional history exists Hepatitis B Vaccines Completed 03/25/2002, 11/11/2001, 12/17/2000 Meningococcal Vaccine Completed 10/09/2007 Hepatitis A Vaccines Aged Out No long er eligible based on patient's age to complete this topic Men B Vaccine Aged Out No longer elig ible based on patient's age to complete this topic Pneumococcal Vaccine Aged Out No long er eligible based on patient's age to complete this topic
--- OUTSIDE RECORDS SUMMARY | 2025-02-21 17:15 | XMS_ITS | Encounter Summary ---
Author Organization [facility] Address [address] [place] [address] Phone Care Team Providers Care Court Bailiff Name Role Phone Sarah Carbajal MD Primary Care Provider Encounter Details Date Type Department Care Team (Late st Contact Info) Description 01/02/2017 Conversion Encounter [facility] [place] [address] [place] [address] Social History Tobacco Use Types Packs/Day Years [...] on filedocumented in this encounter Care Teams Court Bailiff Relationship Specialty Start Date End Date Sarha Carbajal MD [address] [place] [address] PCP - General 12/27/16 12/24/22 documented as of this encounter
== END 2025-02-21 15:18 | disposition home or self-care (01) ==
LOC: HO.HGS 14:53
PROVIDERS: PCP Physician Assistant; Visit Provider Surgery
DX: K64.9 Unspecified hemorrhoids (principal)
CPT/HCPCS: 46600; 99213

== ENCOUNTER → 2025-02-21 14:52 | Outpatient (BNVA) | payer OTHER, SELFPAY | PROVIDERS: PCP Physician Assistant; Visit Provider Surgery | DX: K64.9 Unspecified hemorrhoids (principal) | CPT/HCPCS: 46600 ==

== ENCOUNTER 2025-04-11 11:11 | Outpatient (AMB) | payer OTHER, SELFPAY ==
[2025-04-11 11:20] VITALS: BP 116/82; PULSE 77; TEMP 36.7; O2SAT 96; BMI 21.6
--- NOTE | 2025-04-11 11:20 | MHC.PC.OV ---
Vital Signs 04/11/25 11:20 Height 5 ft 9 in Weight 146 lb 6 oz BMI 21.6 BP 116/82 Blood Pressure Location Lt brachial Position Sitting Pulse 77 Pulse Source Pulse Oximeter Temp 98.1 F Temp Source Temporal Artery Scan Pulse Oximetry (%) 96 Intake Visit Reasons: Cold Symptoms Allergies No Known Allergies (No Known Allergies*) Allergy (Verified 04/11/25 11:26) Medication List - Last Reconciled 04/11/25 by Yari Matias PA-C drospirenone-ethinyl estradiol 3-0.02 mg (Lela (28)) 1 tab PO DAILY multivitamin 1 tab PO DAILY triamcinolone acetonide 0.1% 1 appl topical BID Tobacco use date assessed: 02/11/25 Dental Screening Dental Screen Date: 05/24/24 Did you have a dental visit in the last 12 months?: Yes Did you have a dental problem in the last 6 months where you did not have access to dental care?: No Was dental information given to patient?: Patient has dentist HPI Cold Symptoms HPI Details 35-year-old female with no significant past medical history last seen 01/2025 coming in for acute problem. Presenting with a respiratory illness that has been ongoing for about a month, starting before [place] after the patient's son had croup. Symptoms began with a lingering cough and progressed to include head congestion, headaches, intermittent fever and chills, and a sore throat. The patient reports a productive cough with green sputum, chest tightness, and persistent congestion. The patient also experiences coughing while running but denies shortness of breath at rest. For self-treatment, the patient has used DayQuil, NyQuil, and Mucinex. The patient avoids Sudafed due to jitteriness and notes that Mucinex causes epistaxis. She also mentions visible mold in her home. [facility] Medical History Rash and nonspecific skin eruption Hemorrhoids with complication Asthma Tendinitis of right rotator cuff Thoracic spine pain History of meningitis Surgical History History of hernia surgery Family History Mother High cholesterol Father Diabetes Hypertension Maternal Grandmother Breast cancer, Onset Age: 48 Paternal Grandmother Breast cancer Social History Housing: House Alcohol intake: current Alcohol intake frequency: holidays/special occasions only Patient Tobacco Use Status: Never used Tobacco e-Cigarette/Vaping Use: Never Used Second Hand Smoke Exposure: No service: No Current occupational status: employed 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 1. Little interest or pleasure in doing things: not at all 2. Feeling down, depressed, or hopeless: not at all 3. Trouble falling or staying asleep, or sleeping too much: not at all 4. Feeling tired or having little energy: not at all 5. Poor appetite or overeating: not at all 6. Feeling bad about yourself - or that you are a failure or have let yourself or your family down: not at all 7. Trouble concentrating on things, such as reading the newspaper or watching television: not at all 8. Moving or speaking so slowly that other people could have noticed. Or the opposite - being so fidgety or restless that you have been moving around a lot more than usual: not at all 9. Thoughts that you would be better off or of hurting yourself in some way: not at all Total score: 0 Depression Screening Interpretation: Negative Depression Screening Done: Yes Source: Developed by Drs. Jason Maxwell, Joie Bolaños, Nash Jeronimo and colleagues, with an educational bina from [employer]. Thrive Questionnaire Date Thrive assessed: 02/11/25 I am a: Patient What is your living situation today?: I have a steady place to live Within the past 12 months, did the food you bought not last and you didn't have the money to get more?: Never true Within the past 12 months, did you worry whether your food would run out before you got money to buy more?: Never true Do you have trouble paying for medicines?: No Do you have trouble getting transportation to medical appointments?: No Do you have trouble paying your heating and electricity bill?: No Do you have trouble taking care of your child, family member or friend?: No Do you have trouble with day-to-day activities such as bathing, preparing meals, shopping, managing finances, etc.?: No Are you currently unemployed and looking for a job?: No Are you interested in more education?: No Please select the resources that you would like help with: None Currently or been in a relationship where the following occur: No concerns reported THRIVE Score: 0 AUDIT C Alcohol Use Questionnaire (AUDIT-C) 1. How often do you have a drink containing alcohol?: Never 3. How often do you have six or more drinks on one occasion?: Never Total Score: 0 DEMETRICE-7 AMB Questionnaire DEMETRICE-7 Date DEMETRICE - 7 assessed: 05/24/24 Feeling nervous, anxious, or on edge: 0 = Not at all Not being able to stop or control worryin = Not at all Worrying too much about different things: 0 = Not at all Trouble relaxin = Not at all Being so restless that it is hard to sit still: 0 = Not at all Becoming easily annoyed or irritable: 0 = Not at all Feeling afraid as if something awful might happen: 0 = Not at all Total DEMETRICE-7 score (0-4 normal; 5-9 mild; 10-14 moderate; 15-21 severe): 0 Source: Developed by Drs. Jason Maxwell, Joie Bolaños, Nash Jeronimo and colleagues, with an educational bina from [employer]. Review of Systems Const Reports body aches, Reports chills, Reports fever(s) (intermittent), Reports headache(s) and Denies poor appetite Eyes Reports no additional complaints ENT Denies dizziness, Reports headache(s) and Reports sinus pain Card Denies chest pain, Denies edema, Denies lightheadedness and Denies dyspnea Resp Reports cough, Reports excessive phlegm production and Denies dyspnea GI Denies abdominal pain, Denies nausea and Denies vomiting Reports no additional complaints Musc Reports no additional complaints and Denies abnormal gait Skin/Breast Reports system reviewed and no additional complaints, except as documented Neuro Denies abnormal gait, Denies dizziness and Reports headache(s) Psych Reports no additional complaints Physical exam (Primary Care) BMI result Body Mass Index 21.6 Tobacco/Smoking Status: Tobacco use Status Tobacco use date assessed 02/11/25 04/11/25 08:54 Patient Tobacco Use Status Never used Tobacco 04/11/25 08:54 e-Cigarette/Vaping Use Never Used 04/11/25 08:54 Depression Screening Interpretation: Negative Thrive Assessment: Date of Thrive Assessment Date Thrive assessed 02/11/25 04/11/25 08:54 Currently or been in a relationship where the following occur: No concerns reported Const General: cooperative, healthy appearing, comfortable and no acute distress Orientation/consciousness: patient oriented x3 HENMT Head: Yes normocephalic Ears: hearing grossly normal bilaterally General nose exam: Normal external nose present Eyes General: appearance normal, both eyes and all related structures Conjunctivae: conjunctivae normal Neck Neck: Yes full ROM and Yes no lymphadenopathy Resp Effort & Inspection: normal respiratory effort Auscultation: clear to auscultation bilaterally, no crackles, no rales, no rhonchi and no wheezes Cardio Rate: regular rate Rhythm: regular rhythm Skin General skin exam: no rashes or lesions noted Neuro General: patient oriented x3 Gait exam (Neuro): Normal gait present Extrem General: Yes normal to inspection, Yes full ROM and No edema Psych Affect: normal affect Attitude: cooperative Insight: Good insight present (Psych) Judgement: Good judgement present (Psych) Coding Level of Care Code Est Pt Level 3 (52196) Diagnoses Cough R05.9 Mold exposure Z77.120 Assessment & Plan Assessment & Plan (1) Cough: Code(s): R05.9 - Cough, unspecified Category: Medical Plan: Given the month-long duration of illness, productive cough with green sputum, and associated symptoms, a bacterial component is suspected. Although the lung exam is clear, an antibiotic is indicated. Augmentin will be prescribed for a 7-day course. The patient was advised to take it with food and a probiotic to minimize gastrointestinal upset. A prescription for a probiotic was sent, with the alternative of [id number] acidophilus if not covered by insurance. Benzonatate was also prescribed for cough suppression to aid with sleep. A chest x-ray order was also ordered to r/o lung involvement. (2) Mold exposure: Code(s): Z77.120 - Contact with and (suspected) exposure to mold (toxic) Category: Social Hx Plan: The patient reports visible mold in the bathroom, which could be exacerbating respiratory symptoms. Advised to scrub the area with white vinegar as a temporary and non-toxic method for mold removal until professional remediation can be performed. CXR was ordered to r/o any lung involvement. Plan This note was constructed using voice recognition software. While every effort has been made to ensure accuracy and hospitality recruiter, still areas may have been included sometimes these areas may affect the content or meeting of the given symptoms. Total time spent caring for the patient today was 20 minutes. This includes time spent before the visit reviewing the chart, time spent during the visit, and time spent after the visit and documentation. Patient was informed and verbally consented to the use of an ambient scribe for clinic note documentation during this visit. Orders: Orders XR chest 2V Today R05.9 - Cough, unspecified Medications: New benzonatate 200 mg PO BID PRN 20 caps 0RF cough amoxicillin-pot clavulanate 875-125 mg 1 tab PO BID 14 tabs 0RF Lactobacillus casei-folic acid 60-1.25 mg ([facility]) 1 cap PO DAILY 30 caps 0RF
--- OUTSIDE RECORDS SUMMARY | 2025-04-11 14:28 | XMS_ITS | Encounter Summary ---
Author Organization [facility] Address [address] [place] [address] Phone Care Team Providers Care Culvert Installer Name Role Phone Sarah Carbajal MD Primary Care Provider [phone] Encounter Details Date Type Department Care Team (Late st Contact Info) Description 12/03/2011 Documentation EM Family Medicine [address] [place] [address] Family Medicine, Physician [address] [place], [place] [phone] Social History Tobacco Use Types Packs/Day Years [...] on filedocumented in this encounter Care Teams Culvert Installer Relationship Specialty Start Date End Date Sarah Carbajal MD [address] [place] [address] [place] [address] PCP - General 12/27/16 12/24/22 documented as of this encounter
--- OUTSIDE RECORDS SUMMARY | 2025-04-11 14:28 | XMS_ITS | Encounter Summary ---
Author Organization [facility] Address [address] [place] [address] Phone Care Team Providers Care Customer Support Representative Name Role Phone Sarah Carbajal MD Primary Care Provider Encounter Details Date Type Department Care Team (Late st Contact Info) Description 01/02/2017 Conversion Encounter [facility] [place] [address] [place] [address] Social History Tobacco Use Types Packs/Day Years [...] on filedocumented in this encounter Care Teams Customer Support Representative Relationship Specialty Start Date End Date Sarah Carbajal MD [address] [place] [address] PCP - General 12/27/16 12/24/22 documented as of this encounter
--- OUTSIDE RECORDS SUMMARY | 2025-04-11 14:28 | XMS_ITS | Encounter Summary ---
Author Organization [facility] Address [address] [place] [address] Phone Care Team Providers Care Corsage Maker Name Role Phone Sarah Carbajal MD Primary Care Provider [phone] Encounter Details Date Type Department Care Team (Late st Contact Info) Description 12/04/2010 Documentation EM Family Medicine [address] [place] [address] Family Medicine, Physician [address] [place], [place] [phone] Social History Tobacco Use Types Packs/Day Years [...] on filedocumented in this encounter Care Teams Corsage Maker Relationship Specialty Start Date End Date Sarah Carbajal MD [address] [place] [address] [place] [address] PCP - General 12/27/16 12/24/22 documented as of this encounter
--- OUTSIDE RECORDS SUMMARY | 2025-04-11 14:28 | XMS_ITS | Clinical Summary ---
Author Organization [facility] Address [address] [place] [address] Phone Care Team Providers Care Water Main Inspector Name Role Phone Unavailable Primary Care Provider [...]
== END 2025-04-11 11:58 | disposition home or self-care (01) ==
LOC: HO.HMCH 11:11
PROVIDERS: PCP Physician Assistant
DX: R05.9 Cough, unspecified (principal); Z77.120 Contact with and (suspected) exposure to mold (toxic)

== ENCOUNTER 2025-04-20 12:56 | Outpatient (REF) | payer OTHER, SELFPAY ==
--- NOTE | ~2025-04-20 | XR_ITS ---
EXAMINATION: XR CHEST 2 VIEWS HISTORY: R05.9 - Cough, unspecified COMPARISON: Comparison is made with the prior examination dated 04/20/2025. FINDINGS: PA and lateral views of the chest are submitted. The lungs are expanded and clear. There is no pleural effusion, pneumothorax, or pulmonary vascular congestion. The heart is normal in size. The bones are intact. XR/XR chest 2V IMPRESSION: No acute cardiopulmonary abnormality. Electronically signed by: Jason Shankar MD 04/20/2025 01:24 PM [facility]
--- OUTSIDE RECORDS SUMMARY | 2025-04-20 15:21 | XMS_ITS | Encounter Summary ---
Author Organization [facility] Address [address] [place] [address] Phone Care Team Providers Care Home Health Care Case Manager Name Role Phone Sarah Carbajal MD Primary Care Provider Encounter Details Date Type Department Care Team (Late st Contact Info) Description 12/04/2010 Documentation EM Family Medicine [address] [place] [address] Family Medicine, Physician [address] [place], [place] [phone] Social History Tobacco Use Types Packs/Day Years [...] on filedocumented in this encounter Care Teams Home Health Care Case Manager Relationship Specialty Start Date End Date Sarah Carbajal MD [address] [place] [address] [place] [address] PCP - General 12/27/16 12/24/22 documented as of this encounter
--- OUTSIDE RECORDS SUMMARY | 2025-04-20 15:21 | XMS_ITS | Clinical Summary ---
Author Organization [facility] Address [address] [place] [address] Phone Care Team Providers Care Machine Sander Name Role Phone Unavailable Primary Care Provider [...]
--- OUTSIDE RECORDS SUMMARY | 2025-04-20 15:21 | XMS_ITS | Encounter Summary ---
Author Organization [facility] Address [address] [place] [address] Phone Care Team Providers Care Rehab Spec Name Role Phone Sarah Carbajal MD Primary Care Provider Encounter Details Date Type Department Care Team (Late st Contact Info) Description 01/02/2017 Conversion Encounter [facility] [place] [address] [place] [address] Social History Tobacco Use Types Packs/Day Years [...] on filedocumented in this encounter Care Teams Rehab Spec Relationship Specialty Start Date End Date Sarah Carbajal MD [address] [place] [address] PCP - General 12/27/16 12/24/22 documented as of this encounter
--- OUTSIDE RECORDS SUMMARY | 2025-04-20 15:21 | XMS_ITS | Encounter Summary ---
Author Organization [facility] Address [address] [place] [address] Phone Care Team Providers Care Vat Overhauler Name Role Phone Sarah Carbajal MD Primary Care Provider Encounter Details Date Type Department Care Team (Late st Contact Info) Description 12/03/2011 Documentation EM Family Medicine [address] [place] [address] Family Medicine, Physician [address] [place], [place] [phone] Social History Tobacco Use Types Packs/Day Years [...] on filedocumented in this encounter Care Teams Vat Overhauler Relationship Specialty Start Date End Date Sarah Carbajal MD [address] [place] [address] [place] [address] PCP - General 12/27/16 12/24/22 documented as of this encounter
== END 2025-04-20 12:57 | disposition home or self-care (01) ==
LOC: HO.XRAY 12:56
PROVIDERS: PCP Physician Assistant
DX: R05.9 Cough, unspecified (principal)
CPT/HCPCS: 71046

== ENCOUNTER → 2025-04-20 12:59 | Outpatient (BNV) | payer OTHER, SELFPAY | PROVIDERS: PCP Physician Assistant; Visit Provider Radiology Diagnostic Radiology | DX: R05.9 Cough, unspecified (principal) | CPT/HCPCS: 71046 ==

== ENCOUNTER 2025-04-25 08:11 | Outpatient (AMB) | payer OTHER, SELFPAY ==
--- NOTE | 2025-04-25 08:14 | MHC.PC.OV ---
Vital Signs 04/25/25 08:15 Height 5 ft 9 in Weight 148 lb 6 oz BMI 21.9 BP 130/62 Blood Pressure Location Lt brachial Position Sitting Pulse 74 Pulse Source Pulse Oximeter Temp 97.1 F Temp Source Temporal Artery Scan Pulse Oximetry (%) 100 Oxygen Delivery Method Room Air Intake Visit Reasons: Annual Exam Intake Note: Patient is here today for a physical. Armhole Raiser Lockstitch Required: No Cob Sawyer: Not Required per policy Accompanied by: Self / Same As Patient Allergies No Known Allergies (No Known Allergies*) Allergy (Verified 04/25/25 08:22) Medication List - Last Reconciled 04/25/25 by Mick Aguila PA-C drospirenone-ethinyl estradiol 3-0.02 mg (Lela (28)) 1 tab PO DAILY multivitamin 1 tab PO DAILY triamcinolone acetonide 0.1% 1 appl topical BID Tobacco use date assessed: 04/25/25 Dental Screening Dental Screen Date: 05/24/24 HPI Annual Exam HPI Details Patient is a 35-year-old female here today for routine annual physical. Patient has a past medical history significant for psoriasis and asthma as a child Concerns--> patient reports getting upper respiratory and sinus infections recently though this has been a chronic issue. She does report having asthma as a child and was on allergy medication. She suspect she has a mold issue in her bathroom that could be causing her to get sick. PLAN: Will add on Singulair on a daily basis to reduce her environmental allergy, also will supply with an albuterol inhaler for acute asthma exacerbation/cough wheeze Vaccines: Up-to-date with COVID vaccine, tetanus vaccine, up-to-date with flu vaccine Silk Screen Etcher: Followed by OBGYN, up-to-date with Pap [facility] Medical History Asthma Rash and nonspecific skin eruption Hemorrhoids with complication Tendinitis of right rotator cuff Thoracic spine pain History of meningitis Surgical History History of hernia surgery Family History Mother High cholesterol Father Diabetes Hypertension Maternal Grandmother Breast cancer, Onset Age: 48 Paternal Grandmother Breast cancer Social History Housing: House Alcohol intake: current Alcohol intake frequency: holidays/special occasions only Patient Tobacco Use Status: Never used Tobacco e-Cigarette/Vaping Use: Never Used Second Hand Smoke Exposure: No service: No Current occupational status: employed 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 Current occupational exposures/hazards: No Cognitive needs: No Hearing needs: No Vision needs: No Questionnaire Thrive Questionnaire Date Thrive assessed: 02/11/25 I am a: Patient What is your living situation today?: I have a steady place to live Within the past 12 months, did the food you bought not last and you didn't have the money to get more?: Never true Within the past 12 months, did you worry whether your food would run out before you got money to buy more?: Never true Do you have trouble paying for medicines?: No Do you have trouble getting transportation to medical appointments?: No Do you have trouble paying your heating and electricity bill?: No Do you have trouble taking care of your child, family member or friend?: No Do you have trouble with day-to-day activities such as bathing, preparing meals, shopping, managing finances, etc.?: No Are you currently unemployed and looking for a job?: No Are you interested in more education?: No Please select the resources that you would like help with: None Currently or been in a relationship where the following occur: No concerns reported THRIVE Score: 0 DEMETRICE-7 AMB Questionnaire DEMETRICE-7 Date DEMETRICE - 7 assessed: 05/24/24 Source: Developed by Drs. Jason Maxwell, Joie Bolaños, Nash Jeronimo and colleagues, with an educational bina from [employer]. Review of Systems Const Denies body aches, Denies chills, Denies excessive sweating, Denies fatigue, Denies fever(s) and Denies headache(s) Eyes Denies blurry vision ENT Denies dysphagia, Denies vertigo, Denies dizziness, Denies headache(s), Denies hearing loss and Denies tinnitus Card Denies chest pain, Denies chest pain with activity, Denies syncope, Denies irregular heart rhythm and Denies dyspnea Resp Reports cough, Denies dyspnea and Denies wheezing GI Denies abdominal pain, Denies melena, Denies hematochezia, Denies coffee ground emesis, Denies dysphagia, Denies diarrhea, Denies nausea and Denies vomiting Denies urinary frequency, Denies dysuria, Denies urinary hesitancy and Denies urinary urgency Musc Denies arthralgias, Denies limited range of motion, Denies muscle cramps and Denies muscle weakness Skin/Breast Denies rash and Denies skin ulcer Neuro Denies Abnormal speech present, Denies confusion, Denies vertigo, Denies dizziness, Denies syncope, Denies headache(s), Denies memory loss and Denies seizure-like activity Psych Denies anxiety, Denies confusion, Denies depression, Denies memory loss, Denies panic attacks and Denies paranoia Endo Denies excessive sweating, Denies fatigue, Denies flushing, Denies polydipsia and Denies polyuria Aller/Immun Denies wheezing Physical exam (Primary Care) Vital Signs: Last Vital Signs Temp 97.1 F 04/25/25 08:15 Pulse 74 04/25/25 08:15 BP 130/62 04/25/25 08:15 Pulse Ox 100 04/25/25 08:15 Oxygen Delivery Method Room Air 04/25/25 08:15 BMI result Body Mass Index 21.9 Tobacco/Smoking Status: Tobacco use Status Tobacco use date assessed 04/25/25 04/25/25 08:18 Patient Tobacco Use Status Never used Tobacco 04/25/25 08:18 e-Cigarette/Vaping Use Never Used 04/25/25 08:18 Thrive Assessment: Date of Thrive Assessment Date Thrive assessed 02/11/25 04/25/25 08:18 Currently or been in a relationship where the following occur: No concerns reported Const General: cooperative, comfortable, no acute distress, alert and awake; No confusion Orientation/consciousness: oriented to person, oriented to place, patient oriented x3 and No confusion HENMT Head: Yes normocephalic Ears: external ears normal and TM's normal bilaterally Face and sinus: No sinus tenderness Mouth: Normal oral and palatal mucosa present and tongue normal Teeth and gingiva: dentition normal and gingiva normal Throat: Yes posterior oropharynx normal, Yes tonsils normal and Yes uvula midline Eyes Conjunctivae: conjunctivae normal Sclerae: sclerae normal Pupils: Equal, round and reactive pupils present EOM: EOMs intact bilaterally Direct Ophthalmoscopy: No no photophobia Neck Neck: Yes no lymphadenopathy, No tender and Yes no JVD Thyroid: Thyroid normal Carotids: no bruits Chest Chest palpation & inspection: no tenderness Resp Effort & Inspection: normal respiratory effort, no audible wheezes, not labored and no stridor Auscultation: no crackles, no rales, no rhonchi and no wheezes Cardio Jugular venous distension: no JVD Rate: regular rate, not bradycardic and not tachycardic Rhythm: regular rhythm Bruits: no carotid bruits Peripheral pulses: Peripheral pulses 2+ throughout GI Inspection: Yes normal to inspection, No abdominal wall ecchymosis and No visible herniation Palpation (GI): Soft to palpation, nontender, no guarding, not rigid and No hepatosplenomegaly present Auscultation: normoactive bowel sounds General: Yes no CVA tenderness Back/Spine/Pelvis Back: no CVA tenderness and No back tenderness Cervical Spine: cervical ROM normal Thoracic/Lumbar Spine: thoracic and lumbar spine normal to inspection, straight leg raise negative bilaterally, No thoraco-lumbar ROM limited and No lumbar spinal tenderness Skin Lesions: no lesions Rashes: no rashes Wounds: no wounds Neuro General: oriented to person, oriented to place, patient oriented x3, CN's II-XI intact bilaterally and No confusion Cranial nerves: Yes Equal, round and reactive pupils present and Yes Normal accommodation reflex present Cognition (Neuro): normal cognition Speech: No Abnormal speech present Gait exam (Neuro): Normal gait present Motor exam (neuro): 5/5 motor strength present throughout Extrem Right upper extremity: full ROM; no cyanosis Left upper extremity: full ROM; no cyanosis Right lower extremity: no edema Left lower extremity: no edema Psych Appearance: grossly normal Mental Status: mental status grossly normal Affect: normal affect Attitude: cooperative Thought process: Normal thought process present Coding Level of Care Code Est Pt Prev Care 18-39y(26955) Diagnoses Annual physical exam Z00. Mild intermittent asthma without complication J45.20 Asthma severity: mild Asthma persistence: intermittent Asthma complication type: uncomplicated Assessment & Plan Assessment & Plan (1) Annual physical exam: Code(s): Z00. - Encounter for general adult medical examination without abnormal findings Category: Medical Plan: As per HPI (2) Asthma: Code(s): J45.909 - Unspecified asthma, uncomplicated Category: Medical Qualifiers: Asthma severity: mild Asthma persistence: intermittent Asthma complication type: uncomplicated Qualified Code(s): J45.20 - Mild intermittent asthma, uncomplicated Plan: Patient's signs and symptoms are concerning for an allergy induced asthma, will supply patient with the montelukast and an albuterol inhaler to use on an as needed basis. Orders: Orders Comprehensive [place]. Panel Fast Today Z13.1 - Encounter for screening for diabetes mellitus Aspergillus Ag EIA Today Z77.120 - Contact with and (suspected) exposure to mold (toxic) IgE Antibody (Anti-IgE IgG) Today J45.909 - Unspecified asthma, uncomplicated Complete Blood Count no Diff Today J45.909 - Unspecified asthma, uncomplicated Resp Allergy Profile Region I Today R05.9 - Cough, unspecified Medications: New montelukast 10 mg PO DAILY 30 tabs 3RF 30 days J45.909 - Unspecified asthma, uncomplicated albuterol sulfate 90 mcg/actuation (Ventolin HFA) 1 inh inhalation QID 8.5 grams 4RF 4 weeks J45.909 - Unspecified asthma, uncomplicated
[2025-04-25 08:15] VITALS: BP 130/62; PULSE 74; TEMP 36.2; O2SAT 100; BMI 21.9
== END 2025-04-25 08:38 | disposition home or self-care (01) ==
PROVIDERS: PCP Physician Assistant; Visit Provider Physician Assistant
DX: Z00.00 Encounter for general adult medical examination without abnormal findings (principal); J45.20 Mild intermittent asthma, uncomplicated

== ENCOUNTER 2025-04-26 08:31 | Outpatient (REF) | payer OTHER, SELFPAY ==
[2025-04-26 08:45] LABS: MANUAL DIFF FLAG NO
[2025-04-26 09:20] LABS: Hematocrit 36.0 % (37.0-47.0); Hemoglobin 11.4 g/dl (12.0-16.0); Imm Gran Abs Auto 0.01 X10*3/uL (0.00-0.03); Imm Gran Pct Auto 0.2 % (0.0-0.4); Lymphocytes Absolute Auto 1.8 X10*3/uL (1.2-4.9); Mean Corpuscular HGB Conc 31.7 g/dl (31.0-35.0); Mean Corpuscular Hemoglobin 23.7 pg (27.0-33.0); Mean Corpuscular Volume 74.8 fL (80.0-98.0); NRBC Abs Auto 0.000 X10*3/uL (0.0-0.012); NRBC Pct Auto 0.0 /100WBC (0.0-0.2); Platelet Count 265 X10*3/uL (160-400); Red Blood Count 4.81 X10*6/uL (4.20-5.50); White Blood Count 4.9 X10*3/uL (4.8-10.8)
[2025-04-26 10:03] LABS: Alanine Aminotransferase 15 U/L (0-31); Albumin Level 4.3 g/dL (3.5-5.0); Alkaline Phosphatase 75 U/L (39-117); Anion Gap 9 (12-20); Aspartate Amino Transferase 20 U/L (5-31); Blood Urea Nitrogen 11 mg/dL (9-16); Calcium 8.8 mg/dL (8.4-10.2); Carbon Dioxide 27 mmol/L (22-29); Chloride 108 mmol/L (96-108); Estimated Glomerular Filt Rate > 60; Potassium 3.9 mmol/L (3.3-5.1); Sodium 140 mmol/L (135-145); Total Protein 7.1 g/dL (6.5-8.0)
[2025-04-26 10:34] LABS: Folate 6.6 ng/mL (> or = 4.0); Vitamin B12 413 pg/mL (200-900)
[2025-04-30 07:48] LABS: Class Alternaria alternata 0; Class Aspergillus fumigatus 0; Class Bermuda Grass 0/1; Class Birch 0/1; Class Cat Dander 0/1; Class Cladosporium herbarum 0; Class Cockroach 0/1; Class Common Ragweed 1; Class Cottonwood 0; Class Derm. pterony 2; Class Dermatophagoides farinae 2; Class Dog Dander 0; Class Elm 0; Class Maple Box Elder 0; Class Mountain Cedar 0; Class Mouse Urine Protein 0; Class Mugwort 0; Class Oak 0/1; Class Penicillium crysogenum 0; Class Rough Pigweed 0; Class Sheep Sorrel 0; Class Sycamore 0; Class Timothy Grass 2; Class Walnut Tree 0; Class White Ash 0; Class White Mulberry 0; D002 - IgE D farinae 1.08 kU/L; E001 - IgE Cat Dander 0.22 kU/L; E005 - IgE Dog Dander <0.10 kU/L; G006 - IgE Timothy Grass 3.04 kU/L; I006-IgE Cockroach, German 0.34 kU/L; M002 - IgE Cladosporium herbar <0.10 kU/L; M003 - IgE Aspergillus fumigat <0.10 kU/L; M006 - IgE Alternaria alternat <0.10 kU/L; T001 IgE Maple/Box Elder <0.10 kU/L; T006 - IgE Cedar, Mountain <0.10 kU/L; T007 - IgE Oak, White 0.17 kU/L; T008 IgE Elm, American <0.10 kU/L; T010 - IgE Walnut <0.10 kU/L; T011 - IgE Maple Leaf Sycamore <0.10 kU/L; T014 - IgE Cottonwood <0.10 kU/L; T015 - IgE Ash, White <0.10 kU/L; T070 - IgE White Mulberry <0.10 kU/L; W001 - IgE Ragweed, Short 0.61 kU/L; W006 - IgE Mugwort <0.10 kU/L; W014 IgE Pigweed, Common <0.10 kU/L; W018 IgE Sheep Sorrel <0.10 kU/L
== END 2025-04-26 08:32 | disposition home or self-care (01) ==
LOC: HO.LAB 08:31
PROVIDERS: PCP Physician Assistant; Visit Provider Physician Assistant
DX: Z13.0 Encounter for screening for diseases of the blood and blood-forming organs and certain disorders involving the immune mechanism (principal); Z13.1 Encounter for screening for diabetes mellitus; J45.909 Unspecified asthma, uncomplicated; R05.9 Cough, unspecified; Z13.21 Encounter for screening for nutritional disorder; Z13.29 Encounter for screening for other suspected endocrine disorder; Z77.120 Contact with and (suspected) exposure to mold (toxic)
CPT/HCPCS: 36415; 80053; 82306; 82607; 82746; 82785; 83520; 84443; 85025; 86003; 87305

== ENCOUNTER 2025-05-09 11:44 | Outpatient (AMB) | payer OTHER, SELFPAY ==
[2025-05-09 12:17] VITALS: BP 125/63; PULSE 93; RESP 20; TEMP 37.1; O2SAT 99; BMI 22.1
--- NOTE | 2025-05-09 12:17 | AM.OFFWIN_ITS ---
Intake Vital Signs 05/09/25 12:17 Height 5 ft 9 in Weight 150 lb BMI 22.1 BP 125/63 Blood Pressure Location Lt brachial Position Sitting Respiration 20 Pulse 93 Pulse Source Pulse Oximeter Temp 98.7 F Temp Source Oral Pulse Oximetry (%) 99 Oxygen Delivery Method Room Air Intake Visit Reasons: EP- ? Flu Symptoms Intake Note: EP complains of cough, headache, body ache, nasal congestion and sore throat started two days ago - Friday night. Patient Tobacco Use Status: Never used Tobacco Allergies No Known Allergies (No Known Allergies*) Allergy (Verified 05/09/25 12:25) Do you need a note to return to daycare/school/sports/work: Yes HPI HPI Comments History of Present Illness0 Details History of Present Illness The patient is a 35 year old female with a past medical history of asthma presenting with body aches, sore throat, cough, and congestion. - The patient reports the onset of sympt oms including body aches, sore throat, cough, and congestion since Friday night. - She has had a low-grade fever of 99.5? F, chills, and some diarrhea without abdominal pain or blood. - She denies difficulty swallowing but r eports congestion without trouble breathing. - She has been treating her symptoms wit h DayQuil and NyQuil. - She received her flu vaccine this year . - The patient has a history of asthma. - She recently received a new inhaler bu t has not needed to use it for her current symptoms. Review of Systems - Constitutional: Reports low-grade feve r (99.5?F), chills, and body aches. - HEENT: Reports sore throat and congest ion. Denies difficulty swallowing. - Respiratory: Reports cough. Denies dys pnea. - Gastrointestinal: Reports some diarrhe a. Denies nausea, vomiting, abdominal pain, or hematochezia. Physical Exam General Appearance: Normal appearance, well developed. No acute distress ENT: External ears and ear canals normal. TM without erythema or bulging. Clear nasal drainage with postnasal drip noted. Oropharynx clear without erythema or exudate. Head: Normocephalic, atraumatic Cardiac: Regular rate and rhythm. No murmurs. Pulmonary: No respiratory distress. Clear to auscultation bilaterally. Musculoskeletal: Moving all extremities spontaneously and against gravity Mental Status: Alert and Oriented x 3 Psychiatric: Normal mood. Normal affect. [facility] Medical History Asthma Rash and nonspecific skin eruption Hemorrhoids with complication Tendinitis of right rotator cuff Thoracic spine pain History of meningitis Surgical History History of hernia surgery Family History Mother High cholesterol Father Diabetes Hypertension Maternal Grandmother Breast cancer, Onset Age: 48 Paternal Grandmother Breast cancer Social History Housing: House Alcohol intake: current Alcohol intake frequency: holidays/special occasions only Patient Tobacco Use Status: Never used Tobacco e-Cigarette/Vaping Use: Never Used Second Hand Smoke Exposure: No service: No Current occupational status: employed 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 Current occupational exposures/hazards: No Cognitive needs: No Hearing needs: No Vision needs: No Physical Exam Vital Signs: Last Vital Signs Temp 98.7 F 05/09/25 12:17 Pulse 93 05/09/25 12:17 Resp 20 05/09/25 12:17 BP 125/63 05/09/25 12:17 Pulse Ox 99 05/09/25 12:17 Oxygen Delivery Method Room Air 05/09/25 12:17 BMI result Body Mass Index 22.1 Results AMB Rapid Strep AMB Rapid Strep Negative Last Edit by Homero Hernandez MA on 05/09/25 12:53 Results Reviewed Results Reviewed: Laboratory Last Values Strep Scn Rapid Clinic Negative 05/09/25 12:52 Assessment & Plan Assessment & Plan (1) Viral URI: Code(s): J06.9 - Acute upper respiratory infection, unspecified Plan - The patient's presentation with acute onset of fever, body aches, sore throat, cough, and congestion is highly suggestive of a viral syndrome. - There is a high suspicion for influenza - The negative rapid strep test and lack of exudates on exam make streptococcal pharyngitis less likely. - As COVID/flu/RSV may take up to 12 hours to result, we will empirically treat for influenza with Tamiflu - The risks, benefits, and potential gastrointestinal side effects were discussed, and the patient agreed to treatment. - Discuss that if flu is negative, she can discontinue the Tamiflu. - She will continue symptomatic care with DayQuil/NyQuil, hydration, and rest. - Advised to use albuterol inhaler as needed for any shortness of breath or wheezing - A work note will be provided for today and tomorrow. - The patient was advised to return for worsening symptoms, including high fevers, difficulty breathing, or a worsening cough. Patient was informed and verbally consented to the use of an ambient scribe for clinic note documentation during the visit. Orders: Orders SARS-CoV2/FLU/RSV Today R09.89 - Other specified symptoms and signs involving the circulatory and respiratory systems AMB Rapid Strep Screen Today J06.9 - Acute upper respiratory infection, unspecified Medications: New oseltamivir (Tamiflu) 75 mg PO Q12H 10 caps 0RF 5 days Coding Level of Care Code Est Pt Level 3 (63585) Diagnoses Viral URI J06.9
--- OUTSIDE RECORDS SUMMARY | 2025-05-09 15:01 | XMS_ITS | Clinical Summary ---
Author Organization [facility] Address [address] [place] [id number] Phone Care Team Providers Care Reproduction Artist Name Role Phone Unavailable Primary Care Provider [...]
--- OUTSIDE RECORDS SUMMARY | 2025-05-09 15:01 | XMS_ITS | Encounter Summary ---
Author Organization [facility] Address [address] [place] [address] Phone Care Team Providers Care Manager Mechanical Maintenance Name Role Phone Sarah Carbajal MD Primary Care Provider [phone] Encounter Details Date Type Department Care Team (Late st Contact Info) Description 12/04/2010 Documentation EM Family Medicine [address] [place] [address] Family Medicine, Physician [address] [place], [place] [phone] Social History Tobacco Use Types Packs/Day Years [...] on filedocumented in this encounter Care Teams Manager Mechanical Maintenance Relationship Specialty Start Date End Date Sarah Carbajal MD [address] [place] [address] [place] [id number] PCP - General 12/27/16 12/24/22 documented as of this encounter
--- OUTSIDE RECORDS SUMMARY | 2025-05-09 15:01 | XMS_ITS | Encounter Summary ---
Author Organization [facility] Address [address] [place] [address] Phone Care Team Providers Care Manufacturing Millwright Name Role Phone Sarah Carbajal MD Primary Care Provider Encounter Details Date Type Department Care Team (Late st Contact Info) Description 12/03/2011 Documentation EM Family Medicine [address] [place] [address] Family Medicine, Physician [address] [place], [place] [phone] Social History Tobacco Use Types Packs/Day Years [...] on filedocumented in this encounter Care Teams Manufacturing Millwright Relationship Specialty Start Date End Date Sarah Carbajal MD [address] [place] [address] [place] [address] PCP - General 12/27/16 12/24/22 documented as of this encounter
--- OUTSIDE RECORDS SUMMARY | 2025-05-09 15:01 | XMS_ITS | Encounter Summary ---
Author Organization [facility] Address [address] [place] [address] Phone Care Team Providers Care Circus Artist Name Role Phone Sarah Carbajal MD Primary Care Provider Encounter Details Date Type Department Care Team (Late st Contact Info) Description 01/02/2017 Conversion Encounter [facility] [address] [place] [address] Social History Tobacco Use Types Packs/Day Years [...] on filedocumented in this encounter Care Teams Circus Artist Relationship Specialty Start Date End Date Sarah Carbajal MD [address] [place] [address] PCP - General 12/27/16 12/24/22 documented as of this encounter
--- OUTSIDE RECORDS SUMMARY | 2025-05-09 15:01 | XMS_ITS | Encounter Summary ---
Author Organization [facility] Prior to 03/19/2024 Address [address] [place] [address] Care Team Providers Care Viscosity Inspector Name Role Phone Talon Hill MD Primary Care Provider Unava ilable Encounter Details Date Type Department Care Team Description 09/08/2017 Release of Information Medical Records [address] [place] [id number] Abstract, Provider Social History Tobacco Use Types Packs/Day Years Used Date Smoking Tobacco: Never Smokeless Tobacco: Never Sex Assigned at Date Recorded Not on file documented as of this encounter Plan of Treatment Not on file documented as of this encounter Visit Diagnoses Not on filedocumented in this encounter Care Teams Viscosity Inspector Relationship Specialty Start Date End Date Talon Hill MD PCP - General Internal Medicine 09/04/17 documented as of this encounter
== END 2025-05-09 13:14 | disposition home or self-care (01) ==
LOC: HO.HMCWIS 11:44
PROVIDERS: PCP Physician Assistant; Visit Provider Family Medicine
DX: J06.9 Acute upper respiratory infection, unspecified (principal)

== ENCOUNTER 2025-05-09 11:44 | Outpatient (REF) | payer OTHER, SELFPAY ==
[2025-05-09 19:21] LABS: Resp Syncy Virus RNA Qual PCR NEGATIVE (Negative); SARS COV2 PCR INHOUSE POSITIVE (Negative)
== END 2025-05-09 11:45 | disposition home or self-care (01) ==
LOC: HO.LNP 11:44
PROVIDERS: PCP Physician Assistant; Visit Provider Family Medicine
DX: R09.89 Other specified symptoms and signs involving the circulatory and respiratory systems (principal); J06.9 Acute upper respiratory infection, unspecified
CPT/HCPCS: 87637; 87880